=== PATIENT | male | born 1965 | race Two or more races ===

== ENCOUNTER 2017-05-31 12:26 | Emergency (ER) | payer SELFPAY ==
[2017-05-31 12:48] LABS: BILIRUBIN,URINE NEGATIVE (NEGATIVE)
[2017-05-31 12:53] LABS: UA w/ MICROSCOPIC CHARGE YES
[2017-05-31 13:08] LABS: UR CULTURE IF IND NOT INDICATED; WBC,URINE 0-3 /HPF (0-3)
[2017-05-31] MEDS ORDERED: SODIUM CHLORIDE 0.9% 1,000 ML IV ONE (13:16)
[2017-05-31] MEDS ORDERED: HYDROmorphone 1 MG/ML SYRINGE IVP STA (13:16)
[2017-05-31] MEDS ORDERED: ONDANSETRON 4 MG/2 ML VIAL IVP STA ×2 (13:16→14:16)
--- NOTE | 2017-05-31 13:20 | ED Physician Documentation ---
PD HPI ABD PAIN - Stated complaint Stated Complaint: VOMITING/BACK PX - Chief complaint Chief Complaint: Abd Pain - History obtained from History obtained from: Patient, Friend (Flavio) - History of Present Illness Timing - onset: Other (Developed low back pain radiating like a band to both lower quadrants in the groin about 4 days ago, and the next day he developed nausea and diarrhea, both of which got worse. He has had a subjective fever without measuring it. Pain is quite severe, he has never had anything like this. No sick contacts or recent travel.) Review of Systems Ten Systems: 10 systems reviewed and negative Constitutional: reports: Fever (Subjective) Cardiac: denies: Chest pain / pressure, Palpitations Respiratory: denies: Dyspnea, Cough GI: reports: Abdominal Pain, Nausea, Vomiting, Diarrhea. denies: Bloody / black stool : denies: Dysuria, Frequency PD PAST MEDICAL HISTORY - Past Medical History Cardiovascular: None Respiratory: None Neuro: Headache/migraine Endocrine/Autoimmune: Type 2 diabetes GI: Pancreatitis : None HEENT: None Psych: Depression, Claustrophobia Musculoskeletal: Osteoarthritis, Chronic back pain Derm: None - Past Surgical History Past Surgical History: No HEENT: Tonsil/Adenoidectomy - Present Medications Home Medications: Ambulatory Orders Medication Instructions Recorded Confirmed Insulin Glargine,Hum.rec.anlog 25 units SQ ONCE 09/17/15 09/17/15 [Lantus] HYDROcod/ACETAM 5/325 [[place] 5/325] 1 - 2 ea PO Q6H PRN #10 tablet 05/31/17 Ondansetron HCl [Zofran] 4 mg PO Q6H PRN #10 tablet 05/31/17 - Allergies Allergies/Adverse Reactions: Allergies Allergy/AdvReac Type Severity Reaction Status Date / Time meperidine HCl * Allergy Itching Verified 05/31/17 12:32 [From Demerol] peanuts Allergy Anaphylaxis Uncoded 05/31/17 12:32 - Social History Does the pt smoke?: No Smoking Status: Former smoker - Family History Family history: reports: Non contributory - Immunizations Immunizations are current?: Yes PD ED PE NORMAL - Vitals Vital signs reviewed: Yes - General General: Alert and oriented X 3, Other (Pale, uncomfortable, but not in overt distress) - HEENT HEENT: PERRL, EOMI - Neck Neck: Supple, no meningeal sign, No bony TTP - Cardiac Cardiac: RRR, No murmur - Respiratory Respiratory: No respiratory distress, Clear bilaterally - Abdomen Abdomen: Normal bowel sounds, Soft, Other (Tender to both lower quadrants, no surgical signs) - Male Male : Other (NL CIRC GENITALIA, TESTES NTTP, NO HERNIA) - Back Back: No CVA TTP, No spinal TTP - Derm Derm: Normal color, Warm and dry - Extremities Extremities: No edema, No calf tenderness / cord - Neuro Neuro: Alert and oriented X 3, Normal speech - Psych Psych: Normal mood, Normal affect Results - Vitals Vitals: Vital Signs - 24 hr 05/31/17 05/31/17 12:29 14:25 Temperature 36.3 C L Heart Rate 82 84 Respiratory 17 16 Rate Blood Pressure 142/83 H 156/77 H O2 Saturation 99 98 Oxygen O2 Source Room air - Labs Labs: Laboratory Tests 05/31/17 05/31/17 05/31/17 12:34 13:30 13:30 WBC 11.4 H RBC 5.23 Hgb 15.3 Hct 45.1 MCV 86.3 MCH 29.2 MCHC 33.8 RDW 13.7 Plt Count 191 MPV 8.5 Neut # 9.7 H Lymph # 0.9 L Kerr # 0.7 Eos # 0.0 Baso # 0.0 Absolute Nucleated RBC 0.00 Nucleated RBCs 0.0 Sodium 137 Potassium 3.8 Chloride 97 L Carbon Dioxide 30 Anion Gap 10.0 BUN 11 Creatinine 0.7 Estimated GFR (MDRD) 118 Glucose 273 H Lactic Acid Calcium 9.7 Total Bilirubin 0.6 AST 21 ALT 29 Alkaline Phosphatase 45 Total Protein 7.6 Albumin 4.2 Globulin 3.4 Albumin/Globulin Ratio 1.2 Lipase 18 L Urine Color YELLOW Urine Clarity CLEAR Urine pH 7.0 Ur Specific [place] 1.020 Urine Protein >=300 Urine Glucose (UA) >=1000 H Urine Ketones TRACE Urine Occult Blood TRACE-LYSE Urine Nitrite NEGATIVE Urine Bilirubin NEGATIVE Urine Urobilinogen 0.2 (NORMAL) Ur Leukocyte Esterase NEGATIVE Urine RBC 0-5 Urine WBC 0-3 Ur Squamous Epith Cells RARE Squamous Urine Bacteria None Seen Urine Mucus Marked Strands Ur Microscopic Review INDICATED Urine Culture Comments NOT INDICATED 05/31/17 13:50 WBC RBC Hgb Hct MCV MCH MCHC RDW Plt Count MPV Neut # Lymph # Kerr # Eos # Baso # Absolute Nucleated RBC Nucleated RBCs Sodium Potassium Chloride Carbon Dioxide Anion Gap BUN Creatinine Estimated GFR (MDRD) Glucose Lactic Acid 1.5 Calcium Total Bilirubin AST ALT Alkaline Phosphatase Total Protein Albumin Globulin Albumin/Globulin Ratio Lipase Urine Color Urine Clarity Urine pH Ur Specific [place] Urine Protein Urine Glucose (UA) Urine Ketones Urine Occult Blood Urine Nitrite Urine Bilirubin Urine Urobilinogen Ur Leukocyte Esterase Urine RBC Urine WBC Ur Squamous Epith Cells Urine Bacteria Urine Mucus Ur Microscopic Review Urine Culture Comments - Rads (name of study) CT A/P Radiology: EMP read contemporaneously (Mild diverticulosis, advanced DDD at L5/ s1) PD MEDICAL DECISION MAKING - ED course ED course: 52-year-old gentleman presents with undifferentiated lower abdominal pain and back pain associated with vomiting and diarrhea. Pretty benign examination with some mild lower abdominal tenderness. After pain medication the pain was mostly in the back. Workup here mostly negative with the exception of very mild leukocytosis and hyperglycemia which she said was good for him. Abdominal CT without acute findings. Offered surgical consultation and/or observation stay, he would like to observe his symptoms at home and returns in 12 hours if not better. Departure - Departure Disposition: Home, Self Care Clinical Impression: Abdominal pain Qualifiers: Abdominal location: lower abdomen, unspecified Qualified Code(s): R10.30 - Lower abdominal pain, unspecified Condition: Good Record reviewed to determine appropriate education?: Yes Instructions: Abdominal Pain Prescriptions: HYDROcod/ACETAM 5/325 [[place] 5/325] 1 - 2 ea PO Q6H PRN #10 tablet PRN Reason: Pain Ondansetron HCl [Zofran] 4 mg PO Q6H PRN #10 tablet PRN Reason: Nausea / Vomiting Comments: Do not take your metformin for the next 48 hours as discussed. Return if worse in anyway or if not improving within the next 12 hours or so. Your blood pressure was elevated today on check into the emergency department. This does not mean that you have hypertension, it is a common phenomenon to come to the emergency department and have elevated blood pressure. I recommend that she see her primary care physician within the week to have it rechecked when you are feeling better.
[2017-05-31] MEDS ORDERED: HYDROmorphone 1 MG/ML SYRINGE ONE (13:23)
[2017-05-31] MEDS ORDERED: ONDANSETRON 4 MG/2 ML VIAL ONE ×2 (13:23→14:24)
[2017-05-31 13:45] LABS: BASOPHILS % (AUTO) 0.3 %; EOSINOPHILS % (AUTO) 0.1 %; HCT - HEMATOCRIT 45.1 % (42.0-52.0); HGB - HEMOGLOBIN 15.3 g/dL (14.0-18.0); LYMPHOCYTES # (AUTO) 0.9 10^3/uL (1.5-3.5); LYMPHOCYTES % (AUTO) 8.1 %; MEAN CORPUSCULAR HEMOGLOBIN 29.2 pg (27.0-31.0); MEAN CORPUSCULAR HGB CONC 33.8 g/dL (32.0-36.0); MEAN CORPUSCULAR VOLUME 86.3 fL (80.0-94.0); MEAN PLATELET VOLUME 8.5 fL (7.4-11.4); MONOCYTES # (AUTO) 0.7 10^3/uL (0.0-1.0); MONOCYTES % (AUTO) 5.8 %; NEUTROPHILS # (AUTO) 9.7 10^3/uL (1.5-6.6); NEUTROPHILS % (AUTO) 85.7 %; RED BLOOD COUNT 5.23 10^6/uL (4.70-6.10); RED CELL DISTRIBUTION WIDTH 13.7 % (12.0-15.0); UNCORRECTED WHITE BLOOD COUNT 11.4 x10^3/uL; WHITE BLOOD COUNT 11.4 x10^3/uL (4.8-10.8)
[2017-05-31 13:58] LABS: ALBUMIN/GLOBULIN RATIO 1.2 (1.0-2.2); BILIRUBIN,TOTAL 0.6 mg/dL (0.2-1.0); CALCIUM 9.7 mg/dL (8.5-10.3); CREATININE 0.7 mg/dL (0.6-1.2); POTASSIUM 3.8 mmol/L (3.5-5.0); TOTAL PROTEIN 7.6 g/dL (6.7-8.2)
[2017-05-31] MEDS ORDERED: IOPAMIDOL-300 100 ML VIAL IVP ONE (14:17)
--- NOTE | 2017-05-31 15:09 | CT Preliminary Report ---
Exam: CT Abdomen/Pelvis W/ IMPRESSION: 1. No definite acute abnormality explain lower abdominal pain. 2. Mild diverticulosis in the ascending colon without evidence of diverticulitis. 3. Advanced disk degeneration at L5/S1. 4. Additional findings as above. [facility] SITE ID: [id number]
--- NOTE | 2017-05-31 15:11 | CT Report ---
EXAM: CT ABDOMEN AND PELVIS EXAM DATE: 05/31/2017 02:22 PM. CLINICAL HISTORY: IV only, low abd pain. COMPARISONS: None. TECHNIQUE: Routine helical CT imaging was performed through the abdomen and pelvis. IV contrast: 100 cc Isovue-300. Enteric contrast: No. Reconstructions: Coronal and sagittal. In accordance with CT protocol optimization, one or more of the following dose reduction techniques w ere utilized for this exam: automated exposure control, adjustment of mA and/or KV based on patient s ize, or use of iterative reconstructive technique. FINDINGS: Lung Bases: Unremarkable. Liver: Normal. No masses. Gallbladder/Bile Ducts: Unremarkable. Spleen: Normal. Pancreas: Normal. Adrenal Glands: Normal. Kidneys: 1 cm hypodense lesion in the lower pole the right kidney and subcentimeter hypodense lesion in the midpole of the left kidney, cysts. Otherwise, no masses or hydronephrosis. Peritoneal Cavity/Bowel: No free fluid, free air or adenopathy. No masses or acute inflammatory proc ess. A few diverticula are noted in the ascending colon. The appendix is well visualized and normal. Pelvic Organs: The prostate appears mildly heterogeneous and prominent. There is dense calcification of the vas deferens bilaterally. The bladder and visualized pelvic organs are otherwise within normal limits. Vasculature: No aneurysms or other significant abnormality. Atherosclerotic calcifications are Bones: Advanced disk degeneration with endplate sclerosis is seen at L5/S1. Other: None. IMPRESSION: 1. No definite acute abnormality explain lower abdominal pain. 2. Mild diverticulosis in the ascending colon without evidence of diverticulitis. 3. Advanced disk degeneration at L5/S1. 4. Additional findings as above. [facility] Referring Provider Line: [phone] SITE ID: [id number]
[2017-05-31] MEDS ORDERED: diazePAM INJ 5 MG/ML SYRINGE IVP STA (15:24)
[2017-05-31] MEDS ORDERED: diazePAM INJ 5 MG/ML SYRINGE ONE (15:33)
[2017-05-31] MEDS ORDERED: METOCLOPRAMIDE 10 MG/2 ML VIAL IVP STA (15:38)
[2017-05-31] MEDS ORDERED: METOCLOPRAMIDE 10 MG/2 ML VIAL ONE (15:43)
[2017-05-31 16:13] VITALS: BP 151/80
== END 2017-05-31 16:45 | disposition home or self-care (01) ==
LOC: ED 12:26
DX: R10.30 Lower abdominal pain, unspecified (principal); R11.2 Nausea with vomiting, unspecified; R03.0 Elevated blood-pressure reading, without diagnosis of hypertension; E11.9 Type 2 diabetes mellitus without complications; Z79.4 Long term (current) use of insulin; M19.90 Unspecified osteoarthritis, unspecified site; Z87.891 Personal history of nicotine dependence
CPT/HCPCS: 36415; 74177; 80053; 81001; 83605; 83690; 85025; 96361; 96374; 96375; 96376; 99284; J1170; Q9967; 81003; 87086

== ENCOUNTER 2022-12-26 09:42 | Emergency (ER) | payer SELFPAY ==
--- NOTE | 2022-12-26 09:59 | ED Physician Documentation ---
PD HPI ABD PAIN - Stated complaint Stated Complaint: VOMITING - Chief complaint Chief Complaint: Abd Pain - History obtained from History obtained from: Patient - History of Present Illness Timing - onset: How many days ago (4) Timing - duration: Days (4) Timing - details: Gradual onset, Still present Quality: Cramping, Aching, Pain Location: Epigastric Radiation: Upper back. No: Chest, Lower back Improved by: No: Vomiting Worsened by: Eating Associated symptoms: Nausea, Vomiting (any attempt at po intake leads to vomiting.). No: Fever, Constipation, Melena Similar symptoms before: No diagnosis (he states he has had similar symptoms lasting 1-2 days at a time in the past, without dx. usually improves.) Review of Systems Constitutional: reports: Myalgias. denies: Fever, Chills Nose: denies: Rhinorrhea / runny nose, Congestion Throat: denies: Sore throat Cardiac: denies: Chest pain / pressure Respiratory: denies: Dyspnea, Cough GI: reports: Abdominal Pain, Nausea, Vomiting. denies: Abdominal Swelling, Hematemesis : denies: Dysuria, Frequency Neurologic: reports: Generalized weakness. denies: Focal weakness, Numbness PD PAST MEDICAL HISTORY - Past Medical History Cardiovascular: None Respiratory: None Endocrine/Autoimmune: Type 2 diabetes (on insulin with regular doses during the illness. ) GI: Pancreatitis : Renal insuffiency (in getting ready to start dialysis in the next couple of weeks, per patient. ) HEENT: None Psych: Depression, Claustrophobia Musculoskeletal: Osteoarthritis, Chronic back pain Derm: None - Past Surgical History Past Surgical History: No HEENT: Tonsil/Adenoidectomy - Present Medications Home Medications: Ambulatory Orders Medication Instructions Recorded Confirmed ondansetron HCL [Zofran] 4 mg PO Q6H PRN #10 tablet 05/31/17 12/26/22 Albuterol Sulfate [Proair 1 - 2 puffs IH Q6HR PRN 12/26/22 12/26/22 Digihaler] Atorvastatin [Lipitor] 10 mg PO HS 12/26/22 12/26/22 Ferrous Sulfate [Feosol] 325 mg PO DAILY 12/26/22 12/26/22 Fluticasone Propion/Salmeterol 1 each IH DAILY 12/26/22 12/26/22 [Airduo Respiclick 113-14 Mcg] Fluticasone [Flonase] 1 sprays GREGORIO DAILY 12/26/22 12/26/22 Insulin Detemir [Levemir] 10 unit SUBQ DAILY 12/26/22 12/26/22 Insulin Detemir [Levemir] 20 unit SUBQ QPM 12/26/22 12/26/22 Insulin Lispro [Humalog] 10 unit SUBQ BID 12/26/22 12/26/22 Loratadine [Claritin] 10 mg PO DAILY 12/26/22 12/26/22 Losartan [Cozaar] 100 mg PO DAILY 12/26/22 12/26/22 Omeprazole Magnesium 20 mg PO DAILY 12/26/22 12/26/22 Promethazine [Phenergan] 25 mg PO Q6H PRN #15 tab 12/26/22 Sucralfate [Carafate] 1 gm PO BID #20 tablet 12/26/22 Torsemide 20 mg PO DAILY 12/26/22 12/26/22 - Allergies Allergies/Adverse Reactions: Allergies Allergy/AdvReac Type Severity Reaction Status Date / Time meperidine HCl * Allergy Itching Verified 12/26/22 09:50 [From Demerol] peanuts Allergy Anaphylaxis Uncoded 12/26/22 09:50 - Social History Does the pt smoke?: No Smoking Status: Former smoker - Immunizations Immunizations are current?: Yes PD ED PE NORMAL - Vitals Vital signs reviewed: Yes - General General: Alert and oriented X 3, Well developed/nourished, Other (appears uncomfortable and is holding emesis bag. ) - HEENT HEENT: Pharynx benign - Neck Neck: Supple, no meningeal sign, No adenopathy - Cardiac Cardiac: RRR, No murmur - Respiratory Respiratory: Clear bilaterally - Abdomen Abdomen: Normal bowel sounds, Soft, Non distended, No organomegaly, Other (tender without guarding epigastric to ruQ area. No percussion nor rebound. ) - Back Back: No CVA TTP - Derm Derm: Warm and dry. No: Normal color (pale) - Extremities Extremities: Normal ROM s pain, No edema, No calf tenderness / cord Results - Vitals Vitals: Vital Signs - 24 hr 12/26/22 12/26/22 12/26/22 09:46 11:50 13:00 Temperature 36.7 C 36.2 C L Heart Rate 81 78 76 Respiratory 18 18 18 Rate Blood Pressure 201/107 H 190/106 H 196/107 H O2 Saturation 100 100 100 12/26/22 14:46 Temperature Heart Rate 77 Respiratory 18 Rate Blood Pressure 186/100 H O2 Saturation 96 Oxygen O2 Source Room air - Labs Labs: Laboratory Tests 12/26/22 12/26/22 10:23 10:23 WBC 12.3 H RBC 3.74 L Hgb 10.5 L Hct 33.7 L MCV 90.1 MCH 28.1 MCHC 31.2 L RDW 15.1 H Plt Count 276 MPV 9.6 Neut # (Auto) 11.0 H Lymph # (Auto) 0.8 L [place] # (Auto) 0.5 Eos # (Auto) 0.0 Baso # (Auto) 0.0 Absolute Nucleated RBC 0.00 Nucleated RBC % 0.0 Sodium 136 Potassium 4.2 Chloride 97 L Carbon Dioxide 24 Anion Gap 15.0 H BUN 76 H Creatinine 5.6 H Estimated GFR (MDRD) 11 L Glucose 262 H Calcium 8.7 Magnesium 2.8 Total Bilirubin 1.1 H AST 23 ALT 24 Alkaline Phosphatase 71 Total Protein 6.5 L Albumin 3.2 Globulin 3.3 Albumin/Globulin Ratio 1.0 Lipase 28 Ethyl Alcohol < 5.0 - Rads (name of study) RUQ abd U/S Radiology: Prelim report reviewed (GB sludge, no stones. Wall normal. cbd 6 mm. right pleural effusion. ), EMP read indepedently, See rad report chest xray Radiology: Prelim report reviewed (minimal effusion noted. no infiltrates.), EMP read indepedently (done to better eval the pleural effusion noted on U/S.), See rad report PD Medical Decision Making - ED course Complexity details: reviewed results, re-evaluated patient, considered differential, d/w patient ED course: 4 days of nausea and vomiting, stomach cramps. has had simlar in past without dx. possible viral illness versus diabetic gastroparesis. could have gastritis/ulcer. Can eval for pancreatatis and lfts. can get u/S to eval gallbnladder. These tests were normal. he was given iv fluids, antiemetic and pain meds. Improved sympotms with just mild epigastric pains. able to take glass of water and ice slowly. some crackers. He appears to be able to expect home therapy to work. Departure - Departure Disposition: 01 Home, Self Care Clinical Impression: Diabetes Nausea and vomiting Qualifiers: Vomiting type: unspecified Qualified Code(s): R11.2 - Nausea with vomiting, unspecified Chronic renal failure Qualifiers: Chronic kidney disease stage: stage 4 (severe) Qualified Code(s): N18.4 - Chronic kidney disease, stage 4 (severe) Condition: Stable Record reviewed to determine appropriate education?: Yes Instructions: ED Nausea Vomiting Follow-Up: Brannon Tillman MD [Primary Care Provider] - Prescriptions: Sucralfate [Carafate] 1 gm PO BID #20 tablet Promethazine [Phenergan] 25 mg PO Q6H PRN #15 tab PRN Reason: Nausea / Vomiting Comments: Your nausea and vomiting seem to be improved now with medications. This may be related to irritation of the stomach. I would have you continue with your omeprazole daily. To that add sacral fate 2-3 times daily to help coat the stomach. As you are not having good improvement with the Zofran/ondansetron, you could try promethazine instead to help with nausea. Continue your other medications. Small frequent fluids and bland food initially. If you are having less oral intake, until your calorie intake improves, you should cut back your insulin dosing by 10 or 20%. Your blood sugar here was if anything slightly high at 250s. So I would not hold back on your insulin too much. Follow-up with your primary care in the next couple of days, call for an appointment. Return if worsening symptoms again. I sent prescription to your preferred [facility] pharmacy. Discharge Date/Time: 12/26/22 15:22
[2022-12-26] MEDS ORDERED: SODIUM CHLORIDE 0.9% 1,000 ML IV STA ×2 (10:13→13:08)
[2022-12-26] MEDS ORDERED: ONDANSETRON 4 MG/2 ML VIAL IVP STA (10:13)
[2022-12-26] MEDS ORDERED: HYDROmorphone 1 MG/ML CARPUJECT IVP STA (10:14)
[2022-12-26] MEDS ORDERED: PANTOPRAZOLE 40 MG VIAL IVP STA (10:14)
[2022-12-26 10:33] LABS: BASOPHILS % (AUTO) 0.2 %; HCT - HEMATOCRIT 33.7 % (42.0-52.0); HGB - HEMOGLOBIN 10.5 g/dL (14.0-18.0); LYMPHOCYTES # (AUTO) 0.8 10^3/uL (1.5-3.5); LYMPHOCYTES % (AUTO) 6.5 %; MEAN CORPUSCULAR HEMOGLOBIN 28.1 pg (27.0-31.0); MEAN CORPUSCULAR HGB CONC 31.2 g/dL (32.0-36.0); MEAN CORPUSCULAR VOLUME 90.1 fL (80.0-94.0); MEAN PLATELET VOLUME 9.6 fL (7.4-11.4); MONOCYTES # (AUTO) 0.5 10^3/uL (0.0-1.0); MONOCYTES % (AUTO) 3.7 %; NEUTROPHILS % (AUTO) 89.3 %; PLT - PLATELET COUNT 276 10^3/uL (130-450); RED BLOOD COUNT 3.74 10^6/uL (4.70-6.10); RED CELL DISTRIBUTION WIDTH 15.1 % (12.0-15.0); WHITE BLOOD COUNT 12.3 x10^3/uL (4.8-10.8)
[2022-12-26 10:47] LABS: ALBUMIN 3.2 g/dL (3.2-5.5); ALKALINE PHOSPHATASE 71 IU/L (42-121); ALT ALANINE AMINOTRANSFERASE 24 IU/L (10-60); AST ASPARTATE AMINOTRANSFERASE 23 IU/L (10-42); BILIRUBIN,TOTAL 1.1 mg/dL (0.2-1.0); BUN - BLOOD UREA NITROGEN 76 mg/dL (6-20); CALCIUM 8.7 mg/dL (8.5-10.3); CARBON DIOXIDE - CO2 24 mmol/L (21-32); CHLORIDE 97 mmol/L (101-111); CREATININE 5.6 mg/dL (0.6-1.2); ETOH - ETHANOL < 5.0 mg/dL; GFR - MDRD 11 (>89); GLUCOSE 262 mg/dL (70-100); LIPASE 28 U/L (22-51); MAGNESIUM 2.8 mg/dL (1.7-2.8); POTASSIUM 4.2 mmol/L (3.5-5.0); SODIUM 136 mmol/L (135-145); TOTAL PROTEIN 6.5 g/dL (6.7-8.2)
--- NOTE | 2022-12-26 12:09 | XRAY Report ---
PROCEDURE: Chest 1 View X-Ray INDICATIONS: right effusion TECHNIQUE: One view of the chest was acquired. COMPARISON: Limited abdominal ultrasound from the same date. FINDINGS: Surgical changes and devices: None. Lungs and pleura: The right pleural effusion seen on the ultrasound is not well seen on chest x-ray. It may be subpulmonic in location or may be small. Minimal bibasilar atelectasis. Mediastinum: Mediastinal contours appear normal. Mild cardiomegaly. Bones and chest wall: No suspicious bony lesions. Overlying soft tissues appear unremarkable. IMPRESSION: 1. The right pleural effusion seen on ultrasound is not identified on portable chest film. It may be subpulmonic or may be small. 2. Minimal bibasilar atelectasis. Reviewed by: Gian Lamb MD on 12/26/2022 12:08 PM PST Approved by: Gian Lamb MD on 12/26/2022 12:08 PM PST Station ID: [id number]
--- NOTE | 2022-12-26 12:48 | Ultrasound Report ---
PROCEDURE: Abdomen Limited INDICATIONS: upper abd pain and vomiting TECHNIQUE: Real-time focused scanning was performed of the abdomen, with image documentation. COMPARISON: None FINDINGS: A right pleural effusion is noted. The liver is unremarkable in appearance. Normal echo pa ttern. No focal masses. There is gallbladder sludge. No shadowing gallstones. No gallbladder wall thickening or fluid around the gallbladder obtained on examination. Pancreas not visualized secondary to overlying bowel gas. No dilated ducts. Common bile duct measures 4.1 mm. Normal-sized right kidney measuring 10.9 cm without hydronephrosis. IMPRESSION: 1. Right pleural effusion. 2. Gallbladder sludge. No shadowing gallstones. Reviewed by: Gian Lamb MD on 12/26/2022 12:46 PM PST Approved by: Gian Lamb MD on 12/26/2022 12:46 PM PST Station ID: [id number]
[2022-12-26] MEDS ORDERED: HYDROmorphone 0.5 MG/0.5 ML SYRINGE IVP STA (13:08)
[2022-12-26] MEDS ORDERED: MAG HYDROX/AL HYDROX/SIMETH 30 ML UDC PO STA (13:08)
[2022-12-26 14:47] VITALS: BP 186/100
== END 2022-12-26 15:22 | disposition home or self-care (01) ==
LOC: ED 09:42
DX: R11.2 Nausea with vomiting, unspecified (principal); E11.22 Type 2 diabetes mellitus with diabetic chronic kidney disease; N18.4 Chronic kidney disease, stage 4 (severe); Z79.4 Long term (current) use of insulin; Z87.891 Personal history of nicotine dependence
CPT/HCPCS: 36415; 71045; 76705; 80053; 80320; 83690; 83735; 85025; 96361; 96374; 96376; 99284; A9270; J1170

== ENCOUNTER 2023-06-06 19:14 | Emergency (ER) | payer MEDICAID ==
[2023-06-06] MEDS ORDERED: ONDANSETRON 4 MG/2 ML VIAL IVP STA (19:37)
[2023-06-06] MEDS ORDERED: MORPHINE 2 MG/ML CARPUJECT IVP STA (19:37)
[2023-06-06 19:45] LABS: BASOPHILS # (AUTO) 0.1 10^3/uL (0.0-0.1); BASOPHILS % (AUTO) 0.4 %; EOSINOPHILS % (AUTO) 0.1 %; HCT - HEMATOCRIT 37.9 % (42.0-52.0); HGB - HEMOGLOBIN 12.2 g/dL (14.0-18.0); LYMPHOCYTES # (AUTO) 1.1 10^3/uL (1.5-3.5); LYMPHOCYTES % (AUTO) 8.1 %; MEAN CORPUSCULAR HEMOGLOBIN 29.5 pg (27.0-31.0); MEAN CORPUSCULAR HGB CONC 32.2 g/dL (32.0-36.0); MEAN CORPUSCULAR VOLUME 91.8 fL (80.0-94.0); MEAN PLATELET VOLUME 9.7 fL (7.4-11.4); MONOCYTES # (AUTO) 0.9 10^3/uL (0.0-1.0); MONOCYTES % (AUTO) 6.5 %; NEUTROPHILS # (AUTO) 11.1 10^3/uL (1.5-6.6); NEUTROPHILS % (AUTO) 84.4 %; PLT - PLATELET COUNT 133 10^3/uL (130-450); RED BLOOD COUNT 4.13 10^6/uL (4.70-6.10); RED CELL DISTRIBUTION WIDTH 17.8 % (12.0-15.0); WHITE BLOOD COUNT 13.2 x10^3/uL (4.8-10.8)
[2023-06-06 19:57] LABS: INR 1.2 (0.8-1.2); PT - PROTHROMBIN TIME 12.8 secs (9.9-12.6)
[2023-06-06 20:03] LABS: ALBUMIN 4.1 g/dL (3.2-5.5); ALBUMIN/GLOBULIN RATIO 1.2 (1.0-2.2); BILIRUBIN,TOTAL 0.8 mg/dL (0.2-1.0); CALCIUM 9.8 mg/dL (8.5-10.3); CREATININE 6.3 mg/dL (0.6-1.3); POTASSIUM 4.7 mmol/L (3.5-4.5); TOTAL PROTEIN 7.6 g/dL (6.4-8.9)
--- NOTE | 2023-06-06 20:46 | XRAY Report ---
PROCEDURE: Chest 1 View X-Ray INDICATIONS: DYSPNEA/ESRD TECHNIQUE: One view of the chest was acquired. COMPARISON: Chest x-ray 12/26/2022 FINDINGS: Surgical changes and devices: Tunneled central venous catheter with tip terminating in the right atr ium. Lungs and pleura: Prominent pulmonary vascularity. Small right pleural effusion. Mediastinum: Mediastinal contours appear normal. Heart size is mildly enlarged. Bones and chest wall: No suspicious bony lesions. Overlying soft tissues appear unremarkable. IMPRESSION: Mild cardiomegaly. Prominent pulmonary vascularity consistent with pulmonary edema and small right pl eural effusion. Reviewed by: Omega Cuellar MD on 06/06/2023 8:44 PM PDT Approved by: Omega Cuellar MD on 06/06/2023 8:44 PM PDT Station ID: [id number]
--- NOTE | 2023-06-06 21:20 | ED Physician Documentation ---
PD HPI ABD PAIN - Stated complaint Stated Complaint: SOA,VOMITING, TIRED - Chief complaint Chief Complaint: Abd Pain - History obtained from History obtained from: Patient - Additional information Additional information: 58-year-old male with history of ESRD on Friday dialysis, diabetes, gastroparesis presents by private vehicle for 1 day of nausea and vomiting with abdominal pain similar to previous gastroparesis flares. Patient was supposed to go to dialysis today, but missed due to his nausea and vomiting. Last dialyzed 2 days ago on Friday. Patient's home antinausea medications are not working. Pain is generalized, worse in the lower quadrants. Review of Systems Constitutional: denies: Fever, Chills GI: reports: Abdominal Pain, Nausea, Vomiting. denies: Constipation, Diarrhea : denies: Dysuria, Frequency, Hesitancy PD PAST MEDICAL HISTORY - Past Medical History Cardiovascular: None Respiratory: None Endocrine/Autoimmune: Type 2 diabetes (on insulin with regular doses during the illness. ) GI: Pancreatitis : Renal insuffiency (in getting ready to start dialysis in the next couple of weeks, per patient. ) HEENT: None Psych: Depression, Claustrophobia Musculoskeletal: Osteoarthritis, Chronic back pain Derm: None - Past Surgical History Past Surgical History: No HEENT: Tonsil/Adenoidectomy - Present Medications Home Medications: Ambulatory Orders Medication Instructions Recorded Confirmed ondansetron HCL [Zofran] 4 mg PO Q6H PRN #10 tablet 05/31/17 06/06/23 Albuterol Sulfate [Proair 1 - 2 puffs IH Q6HR PRN 12/26/22 12/26/22 Digihaler] Atorvastatin [Lipitor] 10 mg PO HS 12/26/22 12/26/22 Ferrous Sulfate [Feosol] 325 mg PO DAILY 12/26/22 06/06/23 Fluticasone Propion/Salmeterol 1 each IH DAILY 12/26/22 06/06/23 [Airduo Respiclick 113-14 Mcg] Fluticasone [Flonase] 1 sprays GREGORIO DAILY 12/26/22 12/26/22 Insulin Detemir [Levemir] 10 unit SUBQ DAILY 12/26/22 12/26/22 Insulin Detemir [Levemir] 20 unit SUBQ QPM 12/26/22 12/26/22 Insulin Lispro [Humalog] 10 unit SUBQ BID 12/26/22 12/26/22 Loratadine [Claritin] 5 mg PO DAILY 12/26/22 12/26/22 Losartan [Cozaar] 100 mg PO DAILY 12/26/22 12/26/22 Omeprazole Magnesium 20 mg PO DAILY 12/26/22 06/06/23 Promethazine [Phenergan] 25 mg PO Q6H PRN #15 tab 12/26/22 Sucralfate [Carafate] 1 gm PO BID #20 tablet 12/26/22 Torsemide 100 mg PO DAILY 12/26/22 06/06/23 Atorvastatin [Lipitor] 10 mg PO DAILY PM 06/06/23 06/06/23 Carvedilol [Coreg] 6.25 mg PO BID 06/06/23 06/06/23 Metoclopramide [Reglan] 10 mg PO Q6HR 06/06/23 06/06/23 NIFEdipine [Nifedipine ER] 60 mg PO DAILY 06/06/23 06/06/23 calcitrioL [Rocaltrol] 0.25 mcg PO DAILY 06/06/23 06/06/23 cloNIDine [Catapres] 0.1 mg PO BID 06/06/23 06/06/23 hydrOXYzine HCL [Hydroxyzine HCl] 50 mg PO Q6HR PRN 06/06/23 06/06/23 methocarbamoL [Methocarbamol] 500 mg PO TID 06/06/23 06/06/23 prednisoLONE [Prednisolone] 10 mg PO DAILY 06/06/23 06/06/23 rOPINIRole [Requip] 1 mg PO TID 06/06/23 06/06/23 Promethazine [Phenergan] 25 mg PO Q6H PRN #10 tab 06/07/23 - Allergies Allergies/Adverse Reactions: Allergies Allergy/AdvReac Type Severity Reaction Status Date / Time meperidine HCl * Allergy Itching Verified 06/06/23 19:19 [From Demerol] peanuts Allergy Anaphylaxis Uncoded 06/06/23 19:19 - Social History Does the pt smoke?: No Smoking Status: Former smoker - Immunizations Immunizations are current?: Yes PD ED PE NORMAL - Vitals Vital signs reviewed: Yes - General General: Alert and oriented X 3, No acute distress, Well developed/nourished - HEENT HEENT: Atraumatic - Cardiac Cardiac: RRR, Strong equal pulses - Respiratory Respiratory: No respiratory distress, Other (Decreased R sided breath sounds) - Abdomen Abdomen: Soft, Non distended, Other (generalized tenderness to deep palpation without rebound or guarding) - Derm Derm: Normal color, Warm and dry, No rash - Extremities Extremities: No deformity, No tenderness to palpate, Normal ROM s pain, No edema - Neuro Neuro: Alert and oriented X 3, master control supervisor 2-12 intact, No motor deficit, Normal speech - Psych Psych: Normal mood, Normal affect Results - Vitals Vitals: Vital Signs - 24 hr 06/06/23 06/07/23 06/07/23 23:00 00:00 01:51 Heart Rate 83 85 85 Respiratory 20 20 16 Rate Blood Pressure 154/72 H 161/84 H 166/85 H O2 Saturation 93 93 95 Oxygen O2 Source Room air - Labs Labs: Laboratory Tests 06/06/23 06/06/23 06/06/23 19:34 19:34 19:47 WBC 13.2 H RBC 4.13 L Hgb 12.2 L Hct 37.9 L MCV 91.8 MCH 29.5 MCHC 32.2 RDW 17.8 H Plt Count 133 MPV 9.7 Neut # (Auto) 11.1 H Lymph # (Auto) 1.1 L [place] # (Auto) 0.9 Eos # (Auto) 0.0 Baso # (Auto) 0.1 Absolute Nucleated RBC 0.00 Nucleated RBC % 0.0 PT 12.8 H INR 1.2 Sodium 131 L Potassium 4.7 H Chloride 94 L Carbon Dioxide 24 Anion Gap 13.0 BUN 54 H Creatinine 6.3 H Estimated GFR (MDRD) 9 L Glucose 230 H Calcium 9.8 Total Bilirubin 0.8 AST 19 ALT 31 Alkaline Phosphatase 206 H Total Protein 7.6 Albumin 4.1 Globulin 3.5 Albumin/Globulin Ratio 1.2 Lipase 38 PD Medical Decision Making - ED course Complexity details: reviewed results, re-evaluated patient, considered differential, d/w patient, d/w sr technical sales consultant ED course: Chronically unwell but not acutely toxic appearing patient presenting for nausea and vomiting with abdominal pain consistent to previous gastroparesis flares. Abdomen is soft but generally tender to palpation. Will obtain labs and noncontrast CT imaging since the patient does do dialysis. Will be important to assess patient's potassium and volume status since he did miss dialysis today. Patient is still nauseous with Zofran. Will give droperidol. Labs are reviewed, he does have ESRD which is known, however potassium is not a concerning level. EKG without hyperacute T waves. Chest x-ray shows some evidence of volume overload with pleural effusions, however patient is currently sleeping in the exam room and on room air his saturations are 95%. CT imaging is reviewed, there is moderate pleural effusion, diffuse anasarca. These are all chronic findings for patient's, again he is saturating well on room air and in no acute distress despite the pleural effusion. I discussed the patient's care with on-call nephrology at [facility], which is where patient receives dialysis. On-call nephrology believes that patient is stable for discharge home and can call the dialysis center tomorrow morning to arrange for a make-up dialysis session. Nausea has improved with droperidol, will give p.o. challenge and if successful will discharge home with instructions to call dialysis first thing tomorrow morning. Care of patient signed out to nighttime ER provider. Departure - Departure Disposition: Home, Self Care Clinical Impression: Gastroparesis Vomiting Qualifiers: Vomiting type: unspecified Nausea presence: with nausea Qualified Code(s): R11.2 - Nausea with vomiting, unspecified Condition: Stable Instructions: Gastroparesis Prescriptions: Promethazine [Phenergan] 25 mg PO Q6H PRN #10 tab PRN Reason: Nausea / Vomiting Comments: CALL DIALYSIS TOMORROW TO SET UP AN APPOINTMENT!!! A prescription for phenergan (anti-nausea medication) has been electronically submitted to the [facility] pharmacy in [place]. Forms: PCP List Discharge Date/Time: 06/07/23 01:51
[2023-06-06] MEDS ORDERED: DROPERIDOL 5 MG/2 ML VIAL IVP STA (21:30)
--- NOTE | 2023-06-06 22:22 | CT Report ---
PROCEDURE: ABDOMEN/PELVIS WO INDICATIONS: ABD PAIN, N/V TECHNIQUE: A CT scan of the abdomen and pelvis was performed without the use of intravenous contrast. Images we re recorded and evaluated at appropriate window settings. Reformats: coronal and sagittal. For radiat ion dose reduction, the following was used: automated exposure control, adjustment of mA and/or kV ac cording to patient size. COMPARISON: CT abdomen pelvis 05/31/2017. FINDINGS: Image quality: There is mild motion artifact. Lung bases:There are bilateral pleural effusions, moderate on the right and small on the left, with associated compressive atelectasis. Heart: Heart is normal in size. ABDOMEN: Liver:Noncontrast evaluation of liver demonstrates no discrete mass. Gallbladder:There are a few dependent densities within the gallbladder compatible with gallstones. N o definite gallbladder wall thickening or pericholecystic fluid. Biliary ducts: No biliary ductal dilatation. Pancreas: Unremarkable. Spleen: Normal in size. Adrenal Glands: No adrenal nodules. Kidneys and Ureters: No hydronephrosis. There are small vascular calcifications within the renal hil um bilaterally. Stomach and Bowel: Stomach, small bowel loops, and colon are normal in caliber and wall thickness. N o evidence of appendicitis. There is colonic diverticulosis without acute diverticulitis. Peritoneum:There is a small to moderate amount of intraperitoneal free fluid in the abdomen and pelv is. No free air. Ventral Wall: No hernia. Abdominal Nodes: No retroperitoneal or mesenteric adenopathy by size criteria. Vessels: Aorta and inferior vena cava are normal in size. PELVIS: Pelvic Organs: Unremarkable. Bladder: Unremarkable. Pelvic Nodes: No enlarged lymph nodes. Miscellaneous: No inguinal hernias. Bones: Visualized osseous structures demonstrate no suspicious lesions. IMPRESSION: 1. Small to moderate amount of ascites. 2. Bilateral pleural effusions, moderate on the right and small on the left, with associated compress андрей atelectasis. 3. Cholelithiasis without definite CT evidence of acute cholecystitis. 4. No evidence of bowel obstruction. Reviewed by: Ruben Zamora MD on 06/06/2023 10:20 PM PDT Approved by: Ruben Zamora MD on 06/06/2023 10:20 PM PDT Station ID: [id number]
[2023-06-07 01:52] VITALS: BP 166/85
--- NOTE | 2023-06-07 04:39 | ED Physician Documentation ---
ED Addendum - Addendum Addendum: 06/07/23 04:35 Patient was initially evaluated by my colleague Dr. Bain; please see her note for complete history and physical. At the time of signout, it was felt that testing was complete for the purposes of the presenting chief complaint on this visit, but prior to decision to dis charge, patient was needing to pass a p.o. challenge. He had failed this just prior to the end of Dr. Bain's shift, and thus he was given a dose of droperidol. After turnover of care to me, the patient was able to pass a p.o. fluid challenge. I discussed discharge with the patient. He is asleep, awakens easily to voice, and reports he feels well and is ready for discharge home. I asked if he has antinausea medications at home, and he indicates to me that he has Zofran but that it tends to be ineffective. He also says he takes Reglan on a daily basis. He tells me that Phenergan has been prescribed in the past for him and works quite well on his nausea/vomiting. I am providing him with a prescription for a short course of PRN Phenergan. Return precautions reviewed with patient.
== END 2023-06-07 01:51 | disposition home or self-care (01) ==
LOC: ED 19:14
DX: K31.84 Gastroparesis (principal); E11.22 Type 2 diabetes mellitus with diabetic chronic kidney disease; N18.6 End stage renal disease; Z99.2 Dependence on renal dialysis; J90 Pleural effusion, not elsewhere classified; Z79.4 Long term (current) use of insulin
CPT/HCPCS: 36415; 80053; 83690; 85025; 85610; 93005; 96374; 96375; 99284

== ENCOUNTER 2023-06-09 11:15 | Emergency (ER) | payer MEDICAID ==
[2023-06-09 11:57] LABS: BASOPHILS % (AUTO) 0.1 %; HCT - HEMATOCRIT 32.5 % (42.0-52.0); LYMPHOCYTES # (AUTO) 0.6 10^3/uL (1.5-3.5); LYMPHOCYTES % (AUTO) 6.6 %; MEAN CORPUSCULAR HEMOGLOBIN 29.3 pg (27.0-31.0); MEAN CORPUSCULAR HGB CONC 33.8 g/dL (32.0-36.0); MEAN CORPUSCULAR VOLUME 86.7 fL (80.0-94.0); MEAN PLATELET VOLUME 11.1 fL (7.4-11.4); MONOCYTES # (AUTO) 0.7 10^3/uL (0.0-1.0); MONOCYTES % (AUTO) 7.2 %; NEUTROPHILS # (AUTO) 7.8 10^3/uL (1.5-6.6); NEUTROPHILS % (AUTO) 85.2 %; PLT - PLATELET COUNT 93 10^3/uL (130-450); RED BLOOD COUNT 3.75 10^6/uL (4.70-6.10); RED CELL DISTRIBUTION WIDTH 16.9 % (12.0-15.0); WHITE BLOOD COUNT 9.2 x10^3/uL (4.8-10.8)
[2023-06-09] MEDS ORDERED: DROPERIDOL 5 MG/2 ML VIAL IVP STA (12:00)
[2023-06-09] MEDS ORDERED: LORazepam 2 MG/ML VIAL IVP STA (12:00)
--- NOTE | 2023-06-09 12:05 | ED Physician Documentation ---
PD HPI NVD - Stated complaint Stated Complaint: N/V RESTLESS LEGS - Chief complaint Chief Complaint: Abd Pain - History obtained from History obtained from: Patient - Additonal information Additional information: The patient comes to the emergency department chief complaint of abdominal pain, nausea and vomiting that has been going on on and off for the last several days. He has a history of gastroparesis and also, smokes marijuana intermittently. He states that this episode feels fairly consistent with previous episodes exacerbation of gastroparesis. He states that he is on dialysis Friday We friday, but does make some urine. Today is Friday and he has skipped his dialysis to come to the ED. He states that he did miss the previous Friday's dialysis but was able to go on Friday to make up for it. The patient states that he just did not feel like he could sit through dialysis with the nausea. He states that he always gets a pain in his abdomen like "ground glass is being shoved through my system". He does state he has had a cough but he thinks it is mainly from all the vomiting. His last episode of vomiting was about 25 minutes ago. He has been able to keep down sips of water in between. No fevers or chills. No new symptoms. No other complaints at this time. PD PAST MEDICAL HISTORY - Past Medical History Cardiovascular: None Respiratory: None Endocrine/Autoimmune: Type 2 diabetes GI: Pancreatitis : Renal insuffiency HEENT: None Psych: Depression, Claustrophobia Musculoskeletal: Osteoarthritis, Chronic back pain Derm: None - Past Surgical History Past Surgical History: No HEENT: Tonsil/Adenoidectomy - Present Medications Home Medications: Ambulatory Orders Medication Instructions Recorded Confirmed ondansetron HCL [Zofran] 4 mg PO Q6H PRN #10 tablet 05/31/17 06/06/23 Albuterol Sulfate [Proair 1 - 2 puffs IH Q6HR PRN 12/26/22 12/26/22 Digihaler] Atorvastatin [Lipitor] 10 mg PO HS 12/26/22 12/26/22 Ferrous Sulfate [Feosol] 325 mg PO DAILY 12/26/22 06/06/23 Fluticasone Propion/Salmeterol 1 each IH DAILY 12/26/22 06/06/23 [Airduo Respiclick 113-14 Mcg] Fluticasone [Flonase] 1 sprays GREGORIO DAILY 12/26/22 12/26/22 Insulin Detemir [Levemir] 10 unit SUBQ DAILY 12/26/22 12/26/22 Insulin Detemir [Levemir] 20 unit SUBQ QPM 12/26/22 12/26/22 Insulin Lispro [Humalog] 10 unit SUBQ BID 12/26/22 12/26/22 Loratadine [Claritin] 5 mg PO DAILY 12/26/22 12/26/22 Losartan [Cozaar] 100 mg PO DAILY 12/26/22 12/26/22 Omeprazole Magnesium 20 mg PO DAILY 12/26/22 06/06/23 Promethazine [Phenergan] 25 mg PO Q6H PRN #15 tab 12/26/22 Sucralfate [Carafate] 1 gm PO BID #20 tablet 12/26/22 Torsemide 100 mg PO DAILY 12/26/22 06/06/23 Atorvastatin [Lipitor] 10 mg PO DAILY PM 06/06/23 06/06/23 Metoclopramide [Reglan] 10 mg PO Q6HR 06/06/23 06/06/23 NIFEdipine [Nifedipine ER] 60 mg PO DAILY 06/06/23 06/06/23 calcitrioL [Rocaltrol] 0.25 mcg PO DAILY 06/06/23 06/06/23 carvediloL [Coreg] 6.25 mg PO BID 06/06/23 06/06/23 cloNIDine [Catapres] 0.1 mg PO BID 06/06/23 06/06/23 hydrOXYzine HCL [Hydroxyzine HCl] 50 mg PO Q6HR PRN 06/06/23 06/06/23 methocarbamoL [Methocarbamol] 500 mg PO TID 06/06/23 06/06/23 prednisoLONE [Prednisolone] 10 mg PO DAILY 06/06/23 06/06/23 rOPINIRole [Requip] 1 mg PO TID 06/06/23 06/06/23 Promethazine [Phenergan] 25 mg PO Q6H PRN #10 tab 06/07/23 - Allergies Allergies/Adverse Reactions: Allergies Allergy/AdvReac Type Severity Reaction Status Date / Time meperidine HCl * Allergy Itching Verified 06/09/23 11:48 [From Demerol] peanut Allergy Anaphylaxis Verified 06/09/23 12:03 - Social History Does the pt smoke?: No Smoking Status: Never smoker Does the pt have substance abuse?: Yes Substance Use and Type: Marijuana - Immunizations Immunizations are current?: Yes - POLST Patient has POLST: No PD ED PE NORMAL - Vitals Vital signs reviewed: Yes - General General: Alert and oriented X 3, No acute distress, Well developed/nourished - HEENT HEENT: Atraumatic, PERRL, EOMI, Moist mucous membranes - Neck Neck: Supple, no meningeal sign - Cardiac Cardiac: RRR, No murmur, Strong equal pulses - Respiratory Respiratory: No respiratory distress, Clear bilaterally - Abdomen Abdomen: Soft, Non distended, Other (Mild low abdominal tenderness, no rebound or guarding.) - Derm Derm: Normal color, Warm and dry, No rash - Extremities Extremities: No deformity, No edema - Neuro Neuro: Alert and oriented X 3 - Psych Psych: Normal mood, Normal affect Results - Vitals Vitals: Oxygen O2 Source Room air - Labs Labs: Laboratory Tests 06/09/23 06/09/23 06/09/23 11:28 11:42 12:20 WBC 9.2 RBC 3.75 L Hgb 11.0 L Hct 32.5 L MCV 86.7 MCH 29.3 MCHC 33.8 RDW 16.9 H Plt Count 93 L MPV 11.1 Neut # (Auto) 7.8 H Lymph # (Auto) 0.6 L [place] # (Auto) 0.7 Eos # (Auto) 0.0 Baso # (Auto) 0.0 Absolute Nucleated RBC 0.00 Nucleated RBC % 0.0 Sodium 126 L Potassium 4.3 Chloride 89 L Carbon Dioxide 25 Anion Gap 12.0 BUN 66 H Creatinine 6.4 H Estimated GFR (MDRD) 9 L Glucose 258 H POC Whole Bld Glucose 242 H Calcium 9.3 Total Bilirubin 0.9 AST 421 H ALT 299 H Alkaline Phosphatase 124 H Total Protein 6.6 Albumin 3.5 Globulin 3.1 Albumin/Globulin Ratio 1.1 Lipase 9 L PD Medical Decision Making - ED course Complexity details: reviewed old records, reviewed results, re-evaluated patient, considered differential, d/w patient ED course: The patient's vital signs were completely normal. He was treated symptomatically with droperidol and a small dose of Ativan. Laboratory studies were obtained. Laboratory studies showed the expected abnormalities of renal function, but otherwise, were not remarkable for acutely concerning findings. The patient was given a dose of droperidol and Ativan and was found to be feeling quite a bit better. [place] he was stable for discharge home. We have discussed nausea control at home, the need for follow-up with his outpatient doctors, and the usual indications for return. Departure - Departure Disposition: 01 Home, Self Care Clinical Impression: Diabetic gastroparesis, Cyclic vomiting syndrome, End stage renal disease on dialysis due to type 1 diabetes mellitus Condition: Stable Instructions: ED Nausea Vomiting Comments: You have been treated in the emergency department for your nausea and your anxiety. Your labs are baseline but it is very important for you to follow up as soon as possible for your next dialysis appointment. Please continue to work with your primary doctor on your nonemergent concerns, like the hallucinogenic side effects of dialysis and the restless leg syndrome you have been having. He will also need to work getting better control of your nausea at home with your doctors. Please continue drinking plenty of water to stay hydrated. Forms: PCP List Discharge Date/Time: 06/09/23 13:13
[2023-06-09 13:07] LABS: ALBUMIN 3.5 g/dL (3.2-5.5); ALBUMIN/GLOBULIN RATIO 1.1 (1.0-2.2); BILIRUBIN,TOTAL 0.9 mg/dL (0.2-1.0); CALCIUM 9.3 mg/dL (8.5-10.3); CREATININE 6.4 mg/dL (0.6-1.3); POTASSIUM 4.3 mmol/L (3.5-4.5); TOTAL PROTEIN 6.6 g/dL (6.4-8.9)
[2023-06-09 13:19] VITALS: BP 118/89; O2SAT 98
--- NOTE | 2023-06-30 21:57 | ED Physician Documentation ---
ED Addendum - Addendum Addendum: 06/30/23 21:56 As stated, the patient is a type I diabetic. Erroneously stated to be type II diabetic and nursing documentation of past medical history, which has been imported into the physician note.
== END 2023-06-09 13:13 | disposition home or self-care (01) ==
LOC: ED 11:15
DX: E10.43 Type 1 diabetes mellitus with diabetic autonomic (poly)neuropathy (principal); K31.84 Gastroparesis; E10.22 Type 1 diabetes mellitus with diabetic chronic kidney disease; N18.6 End stage renal disease; R11.15 Cyclical vomiting syndrome unrelated to migraine; Z99.2 Dependence on renal dialysis; Z79.899 Other long term (current) drug therapy; Z79.51 Long term (current) use of inhaled steroids
CPT/HCPCS: 36415; 80053; 83690; 85025; 96374; 99283; 99284; J2060

== ENCOUNTER 2023-11-20 12:25 | Outpatient (CLI) | payer OTHER, MEDICAID | END 2023-11-20 23:59 | disposition short-term general hospital (02) | LOC: EMS 12:25 | DX: R07.81 Pleurodynia (principal); R10.11 Right upper quadrant pain; R10.32 Left lower quadrant pain; V43.52XA Car driver injured in collision with other type car in traffic accident, initial encounter; Y92.413 State road as the place of occurrence of the external cause; Z79.01 Long term (current) use of anticoagulants | CPT/HCPCS: A0425; A0429 ==

== ENCOUNTER 2023-12-25 09:14 | Emergency (ER) | payer MEDICAID ==
[2023-12-25 09:52] LABS: BASOPHILS # (AUTO) 0.1 10^3/uL (0.0-0.1); BASOPHILS % (AUTO) 1.4 %; EOSINOPHILS # (AUTO) 0.2 10^3/uL (0.0-0.7); EOSINOPHILS % (AUTO) 4.8 %; HCT - HEMATOCRIT 32.4 % (42.0-52.0); HGB - HEMOGLOBIN 10.1 g/dL (14.0-18.0); MEAN CORPUSCULAR HEMOGLOBIN 29.1 pg (27.0-31.0); MEAN CORPUSCULAR HGB CONC 31.2 g/dL (32.0-36.0); MEAN CORPUSCULAR VOLUME 93.4 fL (80.0-94.0); MEAN PLATELET VOLUME 9.1 fL (7.4-11.4); MONOCYTES # (AUTO) 0.4 10^3/uL (0.0-1.0); MONOCYTES % (AUTO) 9.1 %; NEUTROPHILS # (AUTO) 2.7 10^3/uL (1.5-6.6); NEUTROPHILS % (AUTO) 61.5 %; PLT - PLATELET COUNT 218 10^3/uL (130-450); RED BLOOD COUNT 3.47 10^6/uL (4.70-6.10); RED CELL DISTRIBUTION WIDTH 14.8 % (12.0-15.0); WHITE BLOOD COUNT 4.4 x10^3/uL (4.8-10.8)
--- NOTE | 2023-12-25 10:09 | XRAY Report ---
PROCEDURE: Chest 1V INDICATIONS: chest pain TECHNIQUE: One view of the chest was acquired. COMPARISON: Single view the chest dated 06/06/2023. FINDINGS: Surgical changes and devices: Left hemodialysis catheter is noted, the tip of which is projected ove r the right atrium. Lungs and pleura: There is a large right pleural effusion. No left effusion. The left lung is clear. Mediastinum: Mediastinal contours appear normal. Heart size is normal. Bones and chest wall: No suspicious bony lesions. Overlying soft tissues appear unremarkable. IMPRESSION: Large right pleural effusion. Reviewed by: Sharron Quiroga MD on 12/25/2023 10:08 AM PST Approved by: Sharron Quiroga MD on 12/25/2023 10:08 AM PST Station ID: [id number]
[2023-12-25 10:15] LABS: ALBUMIN/GLOBULIN RATIO 1.3 (1.0-2.2); ALKALINE PHOSPHATASE 72 IU/L (42-121); ALT ALANINE AMINOTRANSFERASE < 3 IU/L (10-60); AST ASPARTATE AMINOTRANSFERASE 12 IU/L (10-42); BILIRUBIN,TOTAL 0.5 mg/dL (0.2-1.0); BUN - BLOOD UREA NITROGEN 22 mg/dL (6-20); CALCIUM 9.2 mg/dL (8.5-10.3); CARBON DIOXIDE - CO2 27 mmol/L (21-32); CHLORIDE 100 mmol/L (101-111); CREATININE 5.7 mg/dL (0.6-1.3); GFR - MDRD 10 (>89); GLUCOSE 101 mg/dL (74-104); LIPASE < 10 U/L (11-82); POTASSIUM 4.5 mmol/L (3.5-4.5); SODIUM 137 mmol/L (135-145)
--- NOTE | 2023-12-25 10:55 | CT Report ---
PROCEDURE: Chest WO INDICATIONS: pleural effusion, hard to assess size on XR TECHNIQUE: A CT scan of the chest was performed. Intravenous contrast media was not administered. Images were re corded and evaluated at appropriate window settings. Reformats: axial MIP of the chest, coronal and s agittal. For radiation dose reduction, the following was used: automated exposure control, adjustment of mA and/or kV according to patient size. COMPARISON: CT of the abdomen and pelvis dated 06/06/2023. FINDINGS: Image quality: Diagnostic. Chest wall and lower neck: No thyroid nodule which requires sonographic follow up. No axillary or sup raclavicular adenopathy by size. Lungs and pleura: There is a large low density right pleural effusion. Compressive atelectasis or con solidation is present within the dependent lung. There is a small low-density left pleural effusion. There is a 7 mm left basilar pulmonary nodule which was likely present on the comparison CT dated 06/06. Mediastinum: Heart size is enlarged. No pericardial effusion. No large vessel abnormality. No mediast inal adenopathy by size criteria. Dense atheromatous calcifications are present within the coronary arteries. There is a left hemodialysis catheter, the tip of which is in the right atrium. Bones: No aggressive osseous abnormality. Upper Abdomen: Unremarkable. IMPRESSION: 1. Large right pleural effusion and compressive atelectasis or consolidation in the adjacent dependen t lung. 2. Small low-density left pleural effusion. 3. 7 mm left basilar pulmonary nodule 6-12 month follow-up recommended. Reviewed by: Sharron Quiroga MD on 12/25/2023 10:[address] [facility] Approved by: Sharron Quiroga MD on 12/25/2023 10:[address] [facility] Station ID: [id number]
[2023-12-25 11:06] LABS: B. PARAPERTUSSIS- RESP PCR PAN NOT DETECTED; B. PERTUSSIS- RESP PCR PANEL NOT DETECTED; C. PNEUMONIAE- RESP PCR PANEL NOT DETECTED; CORONAVIRUS 229E-RESP PCR NOT DETECTED; CORONAVIRUS HKU1-RESP PCR NOT DETECTED; CORONAVIRUS NL63-RESP PCR NOT DETECTED; CORONAVIRUS OC43-RESP PCR NOT DETECTED; HUMAN METAPNEUMOVIRUS NOT DETECTED; INFLUENZA A- RESP PCR PANEL NOT DETECTED; INFLUENZA B - RESP PCR PANEL NOT DETECTED; M. PNEUMONIAE- RESP PCR PANEL NOT DETECTED; PARAINFLUENZA VIRUS 1 NOT DETECTED; PARAINFLUENZA VIRUS 2 NOT DETECTED; PARAINFLUENZA VIRUS 3 NOT DETECTED; PARAINFLUENZA VIRUS 4 NOT DETECTED; RHINOVIRUS/ENTEROVIRUS NOT DETECTED; RSV- RESP PCR PANEL NOT DETECTED; SARS-CoV-2 -RESP PCR PANEL NOT DETECTED
--- NOTE | 2023-12-25 13:51 | ED Physician Documentation ---
PD HPI DYSPNEA - Stated complaint Stated Complaint: SOA,COUGHING - Chief complaint Chief Complaint: Resp - History obtained from History obtained from: Patient - Additional information Additional information: The patient comes to the emergency department chief complaint of dyspnea, increasing over the last few weeks. He states that he was recently admitted to [facility] for intracranial hemorrhage and craniotomy. He just got discharged yesterday and states that he did let them know about the shortness of breath while he was in the hospital but "they did not do anything about it". He states he had a couple of chest x-rays. Patient states he did not sleep very well last night because he just could not breathe well. He states every time he lays back it is worse. The patient denies nausea or vomiting. No chest pain. No fevers. The patient has a history of end-stage renal disease on hemodialysis and is due for his next dialysis treatment tomorrow. He has several friends who live in h same building who have been looking in on him and helping to take care of him. He is accompanied to the ED today by a friend. PD PAST MEDICAL HISTORY - Past Medical History Past Medical History: Yes Cardiovascular: None, [place] Respiratory: None Endocrine/Autoimmune: Type 2 diabetes GI: Pancreatitis : Dialysis, Renal insuffiency HEENT: None Psych: Depression, Claustrophobia Musculoskeletal: Osteoarthritis, Chronic back pain Derm: None - Past Surgical History Past Surgical History: No Cardiovascular: Coronary stent Neuro: Other HEENT: Tonsil/Adenoidectomy - Present Medications Home Medications: Ambulatory Orders Medication Instructions Recorded Confirmed ondansetron HCL [Zofran] 4 mg PO Q6H PRN #10 tablet 05/31/17 12/25/23 Albuterol Sulfate [Proair 1 - 2 puffs IH Q6HR PRN 12/26/22 12/25/23 Digihaler] Atorvastatin [Lipitor] 40 mg PO HS 12/26/22 12/25/23 Fluticasone Propion/Salmeterol 1 each IH DAILY 12/26/22 12/25/23 [Airduo Respiclick 113-14 Mcg] Insulin Detemir [Levemir] 10 unit SUBQ DAILY 12/26/22 12/25/23 Insulin Detemir [Levemir] 20 unit SUBQ QPM 12/26/22 12/25/23 Torsemide 100 mg PO DAILY 12/26/22 12/25/23 calcitrioL [Rocaltrol] 0.25 mcg PO DAILY 06/06/23 12/25/23 carvediloL [Coreg] 25 mg PO BID 06/06/23 12/25/23 hydrOXYzine HCL [Hydroxyzine HCl] 50 mg PO Q6HR PRN 06/06/23 12/25/23 methocarbamoL [Methocarbamol] 750 mg PO HS 06/06/23 12/25/23 rOPINIRole [Requip] 1 mg PO TID 06/06/23 12/25/23 Aspirin [Vazalore] 81 mg PO DAILY 12/25/23 12/25/23 B Complex W-C No.20/Folic Acid 1 mg PO DAILY 12/25/23 12/25/23 [Wescaps Capsule] Clopidogrel [Plavix] 75 mg PO DAILY 12/25/23 12/25/23 Fluticasone/Vilanterol [Breo 1 each IH DAILY 12/25/23 12/25/23 Ellipta 200-25 Mcg INH] Folic Acid/Vit B Complex and C 0.8 mg PO DAILY 12/25/23 12/25/23 [Nancy-Garcia Tablet] Levetiracetam [Keppra Xr] 500 mg PO DAILY 12/25/23 12/25/23 Loratadine [Children's Claritin] 5 mg PO DAILY 12/25/23 12/25/23 Pantoprazole [Protonix] 40 mg PO DAILY 12/25/23 12/25/23 Sacubitril/Valsartan [Entresto 49 1 each PO DAILY 12/25/23 12/25/23 mg-51 mg Tablet] Senna [Senokot] 17.2 mg PO BID 12/25/23 12/25/23 Sevelamer Carbonate [Renvela] 1,600 mg PO BID 12/25/23 12/25/23 Sodium Zirconium Cyclosilicate 10 gm PO DAILY 12/25/23 12/25/23 [Lokelma] amLODIPine [Norvasc] 10 mg PO DAILY 12/25/23 12/25/23 levETIRAcetam [Elepsia Xr] 1,000 mg PO DAILY 12/25/23 12/25/23 oxyCODONE [Roxicodone] 5 mg PO Q6H PRN 12/25/23 12/25/23 polyethylene glycoL 3350 [Miralax] 17 gm PO DAILY 12/25/23 12/25/23 - Allergies Allergies/Adverse Reactions: Allergies Allergy/AdvReac Type Severity Reaction Status Date / Time droperidol Allergy Unknown Verified 12/25/23 10:05 hydromorphone Allergy Itching Verified 12/25/23 10:05 meperidine HCl * Allergy Itching Verified 12/25/23 09:30 [From Demerol] peanut Allergy Anaphylaxis Verified 12/25/23 09:30 - Social History Does the pt smoke?: No Smoking Status: Never smoker Does the pt drink ETOH?: No Does the pt have substance abuse?: Yes - Immunizations Immunizations are current?: Yes - POLST Patient has POLST: No PD ED PE NORMAL - Vitals Vital signs reviewed: Yes - General General: Alert and oriented X 3, No acute distress, Well developed/nourished, Other (The patient appears generally in poor health but is in no apparent distress.) - HEENT HEENT: Atraumatic, PERRL, EOMI, Moist mucous membranes - Neck Neck: Supple, no meningeal sign - Cardiac Cardiac: RRR, No murmur - Respiratory Respiratory: No respiratory distress, Other (Significantly decreased breath sounds in the right lung field. 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, Normal speech, Other (No gross deficits.) - Psych Psych: Normal mood, Normal affect Results - Vitals Vitals: Vital Signs - 24 hr 12/25/23 12/25/23 12/25/23 09:22 10:29 10:56 Temperature 36.4 C L Heart Rate 73 72 Respiratory 20 17 Rate Blood Pressure 181/80 H 180/94 H O2 Saturation 95 94 87 L If not protocol : Oxygen Flow, liters/minute 12/25/23 12/25/23 12/25/23 10:58 11:00 12:00 Temperature 36.5 C Heart Rate 68 68 Respiratory 18 16 Rate Blood Pressure 157/76 H 165/76 H O2 Saturation 95 97 96 If not protocol 2 2 2 : Oxygen Flow, liters/minute 12/25/23 13:30 Temperature Heart Rate 68 Respiratory 18 Rate Blood Pressure 166/92 H O2 Saturation 97 If not protocol 3 : Oxygen Flow, liters/minute Oxygen O2 Source Room air Oxygen Flow Rate 2 - Labs Labs: Laboratory Tests 12/25/23 12/25/23 12/25/23 09:47 09:47 09:47 WBC 4.4 L RBC 3.47 L Hgb 10.1 L Hct 32.4 L MCV 93.4 MCH 29.1 MCHC 31.2 L RDW 14.8 Plt Count 218 MPV 9.1 Neut # (Auto) 2.7 Lymph # (Auto) 1.0 L Collin # (Auto) 0.4 Eos # (Auto) 0.2 Baso # (Auto) 0.1 Absolute Nucleated RBC 0.00 Nucleated RBC % 0.0 Sodium 137 Potassium 4.5 Chloride 100 L Carbon Dioxide 27 Anion Gap 10.0 BUN 22 H Creatinine 5.7 H Estimated GFR (MDRD) 10 L Glucose 101 Calcium 9.2 Total Bilirubin 0.5 AST 12 ALT < 3 L Alkaline Phosphatase 72 B-Natriuretic Peptide 9384 H Total Protein 7.0 Albumin 4.0 Globulin 3.0 Albumin/Globulin Ratio 1.3 Lipase < 10 L Nasal Adenovirus (PCR) Nasal B. parapertussis DNA (PCR) Nasal Coronavir 229E PCR Nasal Coronavir HKU1 PCR Nasal Coronavir NL63 PCR Nasal Coronavir OC43 PCR Nasal Enterovir/Rhinovir PCR Nasal Influenza B PCR Nasal Influenza A PCR Nasal Parainfluen 1 PCR Nasal Parainfluen 2 PCR Nasal Parainfluen 3 PCR Nasal Parainfluen 4 PCR Nasal RSV (PCR) Nasal B.pertussis DNA PCR Nasal C.pneumoniae (PCR) Venu Human Metapneumo PCR Nasal M.pneumoniae (PCR) Nasal SARS-CoV-2 (PCR) 12/25/23 09:57 WBC RBC Hgb Hct MCV MCH MCHC RDW Plt Count MPV Neut # (Auto) Lymph # (Auto) Collin # (Auto) Eos # (Auto) Baso # (Auto) Absolute Nucleated RBC Nucleated RBC % Sodium Potassium Chloride Carbon Dioxide Anion Gap BUN Creatinine Estimated GFR (MDRD) Glucose Calcium Total Bilirubin AST ALT Alkaline Phosphatase B-Natriuretic Peptide Total Protein Albumin Globulin Albumin/Globulin Ratio Lipase Nasal Adenovirus (PCR) NOT DETECTED Nasal B. parapertussis DNA (PCR) NOT DETECTED Nasal Coronavir 229E PCR NOT DETECTED Nasal Coronavir HKU1 PCR NOT DETECTED Nasal Coronavir NL63 PCR NOT DETECTED Nasal Coronavir OC43 PCR NOT DETECTED Nasal Enterovir/Rhinovir PCR NOT DETECTED Nasal Influenza B PCR NOT DETECTED Nasal Influenza A PCR NOT DETECTED Nasal Parainfluen 1 PCR NOT DETECTED Nasal Parainfluen 2 PCR NOT DETECTED Nasal Parainfluen 3 PCR NOT DETECTED Nasal Parainfluen 4 PCR NOT DETECTED Nasal RSV (PCR) NOT DETECTED Nasal B.pertussis DNA PCR NOT DETECTED Nasal C.pneumoniae (PCR) NOT DETECTED Venu Human Metapneumo PCR NOT DETECTED Nasal M.pneumoniae (PCR) NOT DETECTED Nasal SARS-CoV-2 (PCR) NOT DETECTED - Rads (name of study) Chest x-ray Relevant Findings:: Final report received, See rad report (Large right pleural effusion) CT chest no contrast Relevant Findings:: Final report received, See rad report (Large right pleural effusion.) Procedures - Thoracentesis - Major Preparation: Consent obtained, Sterile prep and drape, Sitting, Local - lidocaine Technique: Intercostal space - enter (6), Midscapular line, Right Fluid: Clear, Other (2 L removed.) Aftercare: CXR obtained, No pneumo, No complications, Patient tolerated well, Dressing applied PD Medical Decision Making - ED course Complexity details: reviewed old records, reviewed results, re-evaluated patient, considered differential, d/w patient ED course: The patient was worked up with laboratory studies which were unremarkable, other than his known renal failure. Imaging showed a large right pleural effusion, and I felt that even though the patient had an oxygen saturation in the 90s and was not severely struggling, he would benefit from having thoracentesis, as he has had a lot of health challenges lately for which she is already struggling to bounce back. The patient was very much desirous to have the fluid drained and had been through this before. He signed consent after thorough discussion and thoracentesis was performed as above. The patient reported feeling much better after 2 L of fluid removed from his chest cavity and repeat x-ray showed significant reexpansion of the lung with no pneumothorax. The patient was stable for discharge home. I have emphasized the importance of going to dialysis tomorrow as planned. Departure - Departure Disposition: 01 Home, Self Care Clinical Impression: Pleural effusion Condition: Stable Instructions: ED Effusion Pleural Comments: Your chest was drained of 2 L of fluid on the right side today. Your oxygen saturations been good and your repeat chest x-ray is much improved. Please follow-up for your dialysis tomorrow as planned. Forms: PCP List
--- NOTE | 2023-12-25 14:41 | XRAY Report ---
PROCEDURE: Post Thoracentesis 1V CXR INDICATIONS: post thoracentesis TECHNIQUE: One view of the chest was acquired. COMPARISON: Chest radiograph 12/25/2023. FINDINGS: Surgical changes and devices: Left central venous catheter with tip projecting over the right atrium . Lungs and pleura: No pneumothorax. Interval decrease in right pleural effusion status post thoracent esis. Small right pleural effusion remains. No dense airspace consolidation. Mediastinum: Mediastinal contours appear normal. Heart size is normal. Bones and chest wall: No suspicious bony lesions. Overlying soft tissues appear unremarkable. IMPRESSION: Status post interval right thoracentesis with decreased right pleural effusion. No pneumothorax. Reviewed by: Tiffanie Pineda MD on 12/25/2023 2:40 PM PST Approved by: Tiffanie Pineda MD on 12/25/2023 2:40 PM PST Station ID: [id number]
[2023-12-25 14:47] VITALS: BP 179/90; O2SAT 99
== END 2023-12-25 15:01 | disposition home or self-care (01) ==
LOC: ED 09:14
DX: J90 Pleural effusion, not elsewhere classified (principal); N18.6 End stage renal disease; Z99.2 Dependence on renal dialysis; Z86.79 Personal history of other diseases of the circulatory system; Z98.890 Other specified postprocedural states
CPT/HCPCS: 32554; 36415; 80053; 83690; 83880; 85025; 87633; 99284

== ENCOUNTER 2024-01-03 08:42 | Emergency (ER) | payer MEDICAID ==
--- NOTE | 2024-01-03 09:13 | ED Physician Documentation ---
PD HPI DYSPNEA - Stated complaint Stated Complaint: SOA,COUGH - Chief complaint Chief Complaint: Resp - History obtained from History obtained from: Patient - History of Present Illness Timing - onset: How many days ago (few days of increasing dyspnea, cogh. No fevers. No purulent sputum.) Timing - onset during: Light activity Timing - duration: Days Timing - details: Gradual onset, Still present Inciting event(s): No: Out of meds, URI Similar symptoms before: Diagnosis (had right effusion with syimolar symptosm that improved with thoracentesis of 2 liters a month ago at [facility].) Recently seen: Clinic, Emergency Dept Review of Systems Constitutional: denies: Fever, Chills Nose: denies: Rhinorrhea / runny nose, Congestion Throat: denies: Sore throat Cardiac: denies: Chest pain / pressure Respiratory: reports: Dyspnea, Cough. denies: Wheezing GI: denies: Vomiting, Diarrhea Musculoskeletal: denies: Extremity swelling PD PAST MEDICAL HISTORY - Past Medical History Past Medical History: Yes Cardiovascular: None, [place] Respiratory: None Endocrine/Autoimmune: Type 2 diabetes GI: Pancreatitis : Dialysis, Renal insuffiency HEENT: None Psych: Depression, Claustrophobia Musculoskeletal: Osteoarthritis, Chronic back pain Derm: None - Past Surgical History Past Surgical History: No Cardiovascular: Coronary stent Neuro: Other HEENT: Tonsil/Adenoidectomy - Present Medications Home Medications: Ambulatory Orders Medication Instructions Recorded Confirmed ondansetron HCL [Zofran] 4 mg PO Q6H PRN #10 tablet 05/31/17 01/03/24 Albuterol Sulfate [Proair 1 - 2 puffs IH Q6HR PRN 12/26/22 01/03/24 Digihaler] Atorvastatin [Lipitor] 40 mg PO HS 12/26/22 01/03/24 Insulin Detemir [Levemir] 20 unit SUBQ QPM 12/26/22 01/03/24 Torsemide 100 mg PO DAILY 12/26/22 01/03/24 calcitrioL [Rocaltrol] 0.25 mcg PO DAILY 06/06/23 01/03/24 carvediloL [Coreg] 25 mg PO BID 06/06/23 01/03/24 methocarbamoL [Methocarbamol] 750 mg PO HS 06/06/23 01/03/24 rOPINIRole [Requip] 1 mg PO TID 06/06/23 01/03/24 B Complex W-C No.20/Folic Acid 1 mg PO DAILY 12/25/23 12/25/23 [Wescaps Capsule] Clopidogrel [Plavix] 75 mg PO DAILY 12/25/23 01/03/24 Fluticasone/Vilanterol [Breo 1 each IH DAILY 12/25/23 01/03/24 Ellipta 200-25 Mcg INH] Folic Acid/Vit B Complex and C 0.8 mg PO DAILY 12/25/23 12/25/23 [Nancy-Garcia Tablet] Levetiracetam [Keppra Xr] 500 mg PO DAILY 12/25/23 01/03/24 Pantoprazole [Protonix] 40 mg PO DAILY 12/25/23 01/03/24 Sacubitril/Valsartan [Entresto 49 1 each PO DAILY 12/25/23 01/03/24 mg-51 mg Tablet] Sevelamer Carbonate [Renvela] 1,600 mg PO BID 12/25/23 01/03/24 amLODIPine [Norvasc] 10 mg PO DAILY 12/25/23 01/03/24 levETIRAcetam [Elepsia Xr] 1,000 mg PO DAILY 12/25/23 01/03/24 oxyCODONE [Roxicodone] 5 mg PO Q6H PRN 12/25/23 01/03/24 Albuterol Sulf [Ventolin Hfa 2 - 3 puffs INH QID #1 each 01/03/24 Inhaler] Amox/Clav 875/125 [Augmentin] 1 each PO Q12H #14 tablet 01/03/24 - Allergies Allergies/Adverse Reactions: Allergies Allergy/AdvReac Type Severity Reaction Status Date / Time droperidol Allergy Unknown Verified 01/03/24 09:07 hydromorphone Allergy Itching Verified 01/03/24 09:07 meperidine HCl * Allergy Itching Verified 01/03/24 09:07 [From Demerol] peanut Allergy Anaphylaxis Verified 01/03/24 09:07 - Social History Does the pt smoke?: No Smoking Status: Never smoker Does the pt drink ETOH?: No Does the pt have substance abuse?: Yes - Immunizations Immunizations are current?: Yes - POLST Patient has POLST: No PD ED PE NORMAL - Vitals Vital signs reviewed: Yes - General General: Alert and oriented X 3, Well developed/nourished - Neck Neck: Supple, no meningeal sign, No adenopathy, No JVD - Cardiac Cardiac: RRR, No murmur - Respiratory Respiratory: No respiratory distress. No: Clear bilaterally (decreased right base, with some crackles sounds focally. Left clear. ) - Abdomen Abdomen: Soft, Non tender Results - Vitals Vitals: Oxygen O2 Source Room air - Labs Labs: Laboratory Tests 01/03/24 01/03/24 01/03/24 09:49 09:49 09:59 WBC 4.8 RBC 3.28 L Hgb 9.7 L Hct 30.4 L MCV 92.7 MCH 29.6 MCHC 31.9 L RDW 16.1 H Plt Count 183 MPV 9.6 Neut # (Auto) 3.0 Lymph # (Auto) 1.1 L Kemper # (Auto) 0.5 Eos # (Auto) 0.2 Baso # (Auto) 0.1 Absolute Nucleated RBC 0.00 Nucleated RBC % 0.0 Sodium 138 Potassium 4.8 H Chloride 101 Carbon Dioxide 28 Anion Gap 9.0 BUN 24 H Creatinine 4.8 H Estimated GFR (MDRD) 13 L Glucose 194 H Calcium 9.3 Phosphorus 3.6 Magnesium 1.6 L Total Bilirubin 0.5 AST 9 L ALT 4 L Alkaline Phosphatase 77 Total Protein 6.6 Albumin 3.8 Globulin 2.8 Albumin/Globulin Ratio 1.4 Lipase 14 Nasal Adenovirus (PCR) NOT DETECTED Nasal B. parapertussis DNA (PCR) NOT DETECTED Nasal Coronavir 229E PCR NOT DETECTED Nasal Coronavir HKU1 PCR NOT DETECTED Nasal Coronavir NL63 PCR NOT DETECTED Nasal Coronavir OC43 PCR NOT DETECTED Nasal Enterovir/Rhinovir PCR NOT DETECTED Nasal Influenza B PCR NOT DETECTED Nasal Influenza A PCR NOT DETECTED Nasal Parainfluen 1 PCR NOT DETECTED Nasal Parainfluen 2 PCR NOT DETECTED Nasal Parainfluen 3 PCR NOT DETECTED Nasal Parainfluen 4 PCR NOT DETECTED Nasal RSV (PCR) NOT DETECTED Nasal B.pertussis DNA PCR NOT DETECTED Nasal C.pneumoniae (PCR) NOT DETECTED Venu Human Metapneumo PCR NOT DETECTED Nasal M.pneumoniae (PCR) NOT DETECTED Nasal SARS-CoV-2 (PCR) NOT DETECTED - Rads (name of study) chest xray Relevant Findings:: Prelim report reviewed (moderate right effusion, new from 12/25/2023.), EMP independent interpretation of test (there is interstitial densitity right lower lobe, atelectasis vs infiltrate. some right effusion, increased from 12/25/2023 after thoracentesis, but not nearly as much as was present originally. I don't think radiologist looked further back than the post- procedure CXR which then has minimal effusion.) PD Medical Decision Making - ED course Complexity details: reviewed results (moderate right pleural effusion, but not nearly as much as was prior to thoracentesis recently. I don't feel it is reaccumulated enough for tapping again as yet. His dyspnea may be improper inflation/aeration or early pneumonia, given some interstitial pattern lower right. ), considered differential, d/w patient Departure - Departure Disposition: 01 Home, Self Care Clinical Impression: Dyspnea, Pleural effusion, Renal failure Condition: Stable Record reviewed to determine appropriate education?: Yes Instructions: ED Dyspnea Shortness of Breath Prescriptions: Amox/Clav 875/125 [Augmentin] 1 each PO Q12H #14 tablet Albuterol Sulf [Ventolin Hfa Inhaler] 2 - 3 puffs INH QID #1 each Comments: You are anemic on your blood count but not much lower than your usual baseline. Your hemoglobin today was 9.7. This is not near low enough to need transfusion with the threshold for that usually being hemoglobin of 7. Your kidney function is of course off and about the same as usual. Your potassium level looks good at 4.8. Your phosphorus level and calcium levels are normal. Magnesium is slightly low at 1.6 but we typically would not supplement that in renal failure. Continue with usual medications. I can prescribe you medication to help with nausea. Your chest x-ray shows some reaccumulation of fluid on the right side of the lung. It is nowhere near as much as it was before being drained but does appear a bit more than it was after drainage. It does not appear large enough to be an easy target for draining nor to account for your symptoms per se right now. It does look like the lower lung field on the right is not getting good aeration. There may be some fluid in there related to infection so I could not discount pneumonia per se. It would make sense to go with an antibiotic in case as well as an inhaler to help open the air passages and better aeration. I think that will help your breathing. Also the Acapella a few times daily to help dislodge any mucous plugging and again better aeration. Recheck if not improving well over the next few days. I sent your prescriptions to your preferred pharmacy. The fluid accumulation around the lung may get bigger and the subsequent draining again but is not large enough at this point. Forms: PCP List Discharge Date/Time: 01/03/24 11:29
[2024-01-03 09:59] LABS: BASOPHILS # (AUTO) 0.1 10^3/uL (0.0-0.1); EOSINOPHILS # (AUTO) 0.2 10^3/uL (0.0-0.7); EOSINOPHILS % (AUTO) 4.2 %; HCT - HEMATOCRIT 30.4 % (42.0-52.0); HGB - HEMOGLOBIN 9.7 g/dL (14.0-18.0); LYMPHOCYTES # (AUTO) 1.1 10^3/uL (1.5-3.5); LYMPHOCYTES % (AUTO) 22.5 %; MEAN CORPUSCULAR HEMOGLOBIN 29.6 pg (27.0-31.0); MEAN CORPUSCULAR HGB CONC 31.9 g/dL (32.0-36.0); MEAN CORPUSCULAR VOLUME 92.7 fL (80.0-94.0); MEAN PLATELET VOLUME 9.6 fL (7.4-11.4); MONOCYTES # (AUTO) 0.5 10^3/uL (0.0-1.0); NEUTROPHILS % (AUTO) 61.9 %; PLT - PLATELET COUNT 183 10^3/uL (130-450); RED BLOOD COUNT 3.28 10^6/uL (4.70-6.10); RED CELL DISTRIBUTION WIDTH 16.1 % (12.0-15.0); WHITE BLOOD COUNT 4.8 x10^3/uL (4.8-10.8)
--- NOTE | 2024-01-03 10:20 | XRAY Report ---
PROCEDURE: Chest 1V INDICATIONS: dyspnea, prior right effusion TECHNIQUE: One view of the chest was acquired. COMPARISON: 12/25/2023 FINDINGS: Surgical changes and devices: Tunneled left-sided dialysis catheter. Lungs and pleura: Moderate right pleural effusion Mediastinum: Mediastinal contours appear normal. Heart size is enlarged. No vascular congestion. Bones and chest wall: No suspicious bony lesions. Overlying soft tissues appear unremarkable. IMPRESSION: Moderate right pleural effusion, new from 12/25/2023 Reviewed by: Sreekanth Varghese MD on 01/03/2024 9:19 AM [facility] Approved by: Sreekanth Varghese MD on 01/03/2024 9:19 AM [facility] Station ID: [id number]
[2024-01-03 10:21] LABS: ALBUMIN 3.8 g/dL (3.2-5.5); ALBUMIN/GLOBULIN RATIO 1.4 (1.0-2.2); BILIRUBIN,TOTAL 0.5 mg/dL (0.2-1.0); CALCIUM 9.3 mg/dL (8.5-10.3); CREATININE 4.8 mg/dL (0.6-1.3); MAGNESIUM 1.6 mg/dL (1.7-2.3); PHOSPHORUS 3.6 mg/dL (2.5-5.0); POTASSIUM 4.8 mmol/L (3.5-4.5); TOTAL PROTEIN 6.6 g/dL (6.4-8.9)
[2024-01-03] MEDS: ALBUTEROL NEB 2.5 MG/3 ML INH STA (10:26)
[2024-01-03 11:09] LABS: CORONAVIRUS 229E-RESP PCR NOT DETECTED; CORONAVIRUS HKU1-RESP PCR NOT DETECTED; CORONAVIRUS NL63-RESP PCR NOT DETECTED; CORONAVIRUS OC43-RESP PCR NOT DETECTED; HUMAN METAPNEUMOVIRUS NOT DETECTED; INFLUENZA A- RESP PCR PANEL NOT DETECTED; INFLUENZA B - RESP PCR PANEL NOT DETECTED; PARAINFLUENZA VIRUS 1 NOT DETECTED; PARAINFLUENZA VIRUS 2 NOT DETECTED; PARAINFLUENZA VIRUS 3 NOT DETECTED; PARAINFLUENZA VIRUS 4 NOT DETECTED; RHINOVIRUS/ENTEROVIRUS NOT DETECTED; RSV- RESP PCR PANEL NOT DETECTED; SARS-CoV-2 -RESP PCR PANEL NOT DETECTED
[2024-01-03 11:10] LABS: B. PARAPERTUSSIS- RESP PCR PAN NOT DETECTED; B. PERTUSSIS- RESP PCR PANEL NOT DETECTED; C. PNEUMONIAE- RESP PCR PANEL NOT DETECTED; M. PNEUMONIAE- RESP PCR PANEL NOT DETECTED
[2024-01-03] MEDS: AMOX/CLAV 875 MG/125 MG TABLET PO STA (11:21)
[2024-01-03 11:29] VITALS: BP 148/96; O2SAT 96
== END 2024-01-03 11:29 | disposition home or self-care (01) ==
LOC: ED 08:42
DX: J90 Pleural effusion, not elsewhere classified (principal); N19 Unspecified kidney failure; E11.9 Type 2 diabetes mellitus without complications; Z79.4 Long term (current) use of insulin; Z11.52 Encounter for screening for COVID-19
CPT/HCPCS: 36415; 71045; 80053; 83690; 83735; 84100; 85025; 87633; 94640; 99284; A9270

== ENCOUNTER 2024-05-26 13:31 | Emergency (ER) | payer MEDICAID ==
--- NOTE | 2024-05-26 13:48 | ED Physician Documentation ---
History of Present Illness - Stated complaint Stated Complaint: RT SIDE FACE LUMP/PX,BLOUNT - Chief complaint Chief Complaint: General - Additonal information Additional information: 59-year-old male with history of UT, type 2 diabetes, pancreatitis, dialysis, renal insufficiency, depression, claustrophobia, osteoarthritis presents emergency department for multitude of complaints. Patient reports body aches, chest tightness, headache, cough, blurred vision as well as itching . He has been feeling generalized malaise and unwellness for about the last 5 days. Also states that he has a new lump on the left side of his face near his Right eye he says it started out small but has been growing in size over the last couple days says it is painful and quite itchy. He also reports that he had a thoracentesis a few months ago and has dialysis about 3 times a week. Patient also says that he has been having a headache with blurred vision as well as jaw pain cough and shortness of breath. He has not been able to get into see anyone for this he has not missed any recent dialysis appointments and has also not had any recent medication changes. PD PAST MEDICAL HISTORY - Past Medical History Past Medical History: Yes Cardiovascular: None, UT Respiratory: None Endocrine/Autoimmune: Type 2 diabetes GI: Pancreatitis : Dialysis, Renal insuffiency HEENT: None Psych: Depression, Claustrophobia Musculoskeletal: Osteoarthritis, Chronic back pain Derm: None - Past Surgical History Past Surgical History: No Cardiovascular: Coronary stent Neuro: Other HEENT: Tonsil/Adenoidectomy - Present Medications Home Medications: Ambulatory Orders Medication Instructions Recorded Confirmed ondansetron HCL [Zofran] 4 mg PO Q6H PRN #10 tablet 05/31/17 01/03/24 Albuterol Sulfate [Proair 1 - 2 puffs IH Q6HR PRN 12/26/22 01/03/24 Digihaler] Atorvastatin [Lipitor] 40 mg PO HS 12/26/22 01/03/24 Insulin Detemir [Levemir] 20 unit SUBQ QPM 12/26/22 01/03/24 Torsemide 100 mg PO DAILY 12/26/22 01/03/24 calcitrioL [Rocaltrol] 0.25 mcg PO DAILY 06/06/23 01/03/24 carvediloL [Coreg] 25 mg PO BID 06/06/23 01/03/24 methocarbamoL [Methocarbamol] 750 mg PO HS 06/06/23 01/03/24 rOPINIRole [Requip] 1 mg PO TID 06/06/23 01/03/24 B Complex W-C No.20/Folic Acid 1 mg PO DAILY 12/25/23 12/25/23 [Wescaps Capsule] Clopidogrel [Plavix] 75 mg PO DAILY 12/25/23 01/03/24 Fluticasone/Vilanterol [Breo 1 each IH DAILY 12/25/23 01/03/24 Ellipta 200-25 Mcg INH] Folic Acid/Vit B Complex and C 0.8 mg PO DAILY 12/25/23 12/25/23 [Nancy-Garcia Tablet] Levetiracetam [Keppra Xr] 500 mg PO DAILY 12/25/23 01/03/24 Pantoprazole [Protonix] 40 mg PO DAILY 12/25/23 01/03/24 Sacubitril/Valsartan [Entresto 49 1 each PO DAILY 12/25/23 01/03/24 mg-51 mg Tablet] Sevelamer Carbonate [Renvela] 1,600 mg PO BID 12/25/23 01/03/24 amLODIPine [Norvasc] 10 mg PO DAILY 12/25/23 01/03/24 levETIRAcetam [Elepsia Xr] 1,000 mg PO DAILY 12/25/23 01/03/24 oxyCODONE [Roxicodone] 5 mg PO Q6H PRN 12/25/23 01/03/24 Albuterol Sulf [Ventolin Hfa 2 - 3 puffs INH QID #1 each 01/03/24 Inhaler] Amox/Clav 875/125 [Augmentin] 1 each PO Q12H #14 tablet 01/03/24 - Allergies Allergies/Adverse Reactions: Allergies Allergy/AdvReac Type Severity Reaction Status Date / Time droperidol Allergy Unknown Verified 05/26/24 13:43 hydromorphone Allergy Itching Verified 05/26/24 13:43 meperidine HCl * Allergy Itching Verified 05/26/24 13:43 [From Demerol] peanut Allergy Anaphylaxis Verified 05/26/24 13:43 - Social History Does the pt smoke?: No Smoking Status: Never smoker Does the pt drink ETOH?: No Does the pt have substance abuse?: Yes - Immunizations Immunizations are current?: Yes - POLST Patient has POLST: No PD ED PE NORMAL - Vitals Vital signs reviewed: Yes - General General: Alert and oriented X 3, No acute distress, Well developed/nourished - HEENT HEENT: Atraumatic, PERRL, EOMI, Pharynx benign. No: Moist mucous membranes - Neck Neck: Supple, no meningeal sign - Cardiac Cardiac: RRR - Respiratory Respiratory: Other (diminished breath sounds) - Abdomen Abdomen: Normal bowel sounds, Soft, Non tender, No organomegaly - Derm Derm: Other (right lateral eye facial fluctuant fluid collection in facial hair) - Extremities Extremities: No edema, No calf tenderness / cord - Neuro Neuro: Alert and oriented X 3, peach grower 2-12 intact, No motor deficit, No sensory deficit, Normal speech Eye Opening: Spontaneous Motor: Obeys Commands Verbal: Oriented GCS Score: 15 - Psych Psych: Normal mood, Normal affect PD ED PE EXPANDED - Neuro Neuro: Alert and Oriented X 3, Weakness, CNII-XII intact, PERRL, Normal gait, Normal finger nose, Normal speech. No: Nystagmus Results - Vitals Vitals: Vital Signs - 24 hr 05/26/24 05/26/24 05/26/24 13:37 14:10 16:59 Temperature 36.7 C Heart Rate 67 76 73 Respiratory 18 20 16 Rate Blood Pressure 147/71 H 150/70 H 147/71 H O2 Saturation 99 97 95 Oxygen O2 Source Room air - EKG (time done) 1418 EKG releavant findings:: EKG personally interpreted by author of this note. Relevant findings are: Rate: Rate (enter#) (75) Rhythm: NSR [place]: LAD Intervals: Normal KS QRS: Normal Ischemia: Other (LVH with secondary repolarization abnormality) - Labs Labs: Laboratory Tests 05/26/24 05/26/24 05/26/24 13:58 13:58 13:58 WBC 7.1 RBC 3.33 L Hgb 10.4 L Hct 30.6 L MCV 91.9 MCH 31.2 H MCHC 34.0 RDW 14.4 Plt Count 190 MPV 10.9 Neut # (Auto) 5.3 Lymph # (Auto) 0.8 L Mills # (Auto) 0.8 Eos # (Auto) 0.1 Baso # (Auto) 0.0 Absolute Nucleated RBC 0.00 Nucleated RBC % 0.0 Sodium 131 L Potassium 3.6 Chloride 90 L Carbon Dioxide 27 Anion Gap 14.0 H BUN 26 H Creatinine 4.1 H Estimated GFR (MDRD) 15 L Glucose 208 H Lactic Acid 0.9 Calcium 9.5 Magnesium 1.7 Total Bilirubin 0.8 AST 18 ALT 14 Alkaline Phosphatase 70 Troponin I High Sens 22.1 H* Total Protein 8.6 Albumin 4.8 Globulin 3.8 Albumin/Globulin Ratio 1.3 Lipase 21 Nasal Adenovirus (PCR) Nasal B. parapertussis DNA (PCR) Nasal Coronavir 229E PCR Nasal Coronavir HKU1 PCR Nasal Coronavir NL63 PCR Nasal Coronavir OC43 PCR Nasal Enterovir/Rhinovir PCR Nasal Influenza B PCR Nasal Influenza A PCR Nasal Parainfluen 1 PCR Nasal Parainfluen 2 PCR Nasal Parainfluen 3 PCR Nasal Parainfluen 4 PCR Nasal RSV (PCR) Nasal B.pertussis DNA PCR Nasal C.pneumoniae (PCR) Venu Human Metapneumo PCR Nasal M.pneumoniae (PCR) Nasal SARS-CoV-2 (PCR) 05/26/24 14:10 WBC RBC Hgb Hct MCV MCH MCHC RDW Plt Count MPV Neut # (Auto) Lymph # (Auto) Mills # (Auto) Eos # (Auto) Baso # (Auto) Absolute Nucleated RBC Nucleated RBC % Sodium Potassium Chloride Carbon Dioxide Anion Gap BUN Creatinine Estimated GFR (MDRD) Glucose Lactic Acid Calcium Magnesium Total Bilirubin AST ALT Alkaline Phosphatase Troponin I High Sens Total Protein Albumin Globulin Albumin/Globulin Ratio Lipase Nasal Adenovirus (PCR) NOT DETECTED Nasal B. parapertussis DNA (PCR) NOT DETECTED Nasal Coronavir 229E PCR NOT DETECTED Nasal Coronavir HKU1 PCR NOT DETECTED Nasal Coronavir NL63 PCR NOT DETECTED Nasal Coronavir OC43 PCR NOT DETECTED Nasal Enterovir/Rhinovir PCR NOT DETECTED Nasal Influenza B PCR NOT DETECTED Nasal Influenza A PCR NOT DETECTED Nasal Parainfluen 1 PCR NOT DETECTED Nasal Parainfluen 2 PCR NOT DETECTED Nasal Parainfluen 3 PCR NOT DETECTED Nasal Parainfluen 4 PCR NOT DETECTED Nasal RSV (PCR) NOT DETECTED Nasal B.pertussis DNA PCR NOT DETECTED Nasal C.pneumoniae (PCR) NOT DETECTED Venu Human Metapneumo PCR NOT DETECTED Nasal M.pneumoniae (PCR) NOT DETECTED Nasal SARS-CoV-2 (PCR) NOT DETECTED - Rads (name of study) CT orbits without Relevant Findings:: Final report received, EMP independent interpretation of test, Other (Right maxillary sinus is subtotally opacified acute on chronic sinusitis otherwise unremarkable noncontrast orbital CT.) Head CT without Relevant Findings:: Final report received, EMP independent interpretation of test, Other (No intracranial hemorrhages or abnormalities.) 1 view chest x-ray Relevant Findings:: Final report received, EMP independent interpretation of test, Other (Right basilar consolidation, mild right bilateral diffuse interstitial prominence suggestive of possible pulmonary edema, moderate right- sided pleural effusion) Procedures - Abscess I&D (location) right lateral upper cheek abscess Preparation: Lidocaine 2% Incision: Incised with scalpel, Purulent drainage, Loculations broken, Culture obtained Other: Pt tolerated well, Dressing applied PD Medical Decision Making - ED course ED course: 59-year-old male presents emergency department for multitude of complaints. In regards to patient's blurry vision he says that he does wear glasses but he does not have them on today he does not endorsing any pain with movement of his eyes and denies any flashers but I went ahead and ordered a CT orbits without con for further evaluation of possible retinal detachment and no acute abnormalities were visualized on the orbits CT without. In regards to patient's dizziness and head pain/headache head CT without was also complete for further evaluation and he was found to have opacification of the right maxillary sinus which is acute on chronic, age-related volume loss and small vessel ischemic changes no intracranial hemorrhages or abnormalities. In regards to the generalized malaise and shortness of breath chest x-ray was complete for further evaluation and patient does appear to have moderate right- sided pleural effusion with mild bilateral diffuse interstitial prominence suggestive of mild pulmonary edema as well as right basilar consolidation which may be due to atelectasis, aspiration, or pneumonia. Given how patient is feeling after that patient is experiencing pneumonia. Labs are complete for further evaluation he does not have any leukocytosis mild chronic anemia hemoglobin 10.4, GFR is 15 which is actually better in comparison to patient's GFR normal yes last visit GFR was found to be 13. Troponin was 22.1 this is most likely due to demand ischemia. Respiratory panel negative. Incision and drainage of the right lateral facial abscess was complete wound cultures were sent to lab for further evaluation I am not going to start him on any additional antibiotics for this as he should have complete alleviation of pain and symptoms soon this is most likely due to ingrown hair causing abscess. Patient has a PSI score of 79 and given the fact that he is dependent on dialysis and his next dialysis is due on Friday and he has been having these recurrent pleural effusions that have been requiring drainage although I do not think this will need to be drained right now I do believe that patient benefit from hospitalization. Because patient is dependent on dialysis for end-stage renal disease our hospitalist do not feel comfortable taking him here. I spoke with hospitalist at [facility] Dr. Jimenez who has agreed to admit the patient for further hospitalization and workup there is concern for possible underlying cancer that has been undiagnosed for these recurrent pleural effusions. Patient is transferred via ALS to [facility] for further evaluation workup. Departure - Departure Disposition: 02 Transfer Acute Care Hosp Forms: PCP List
[2024-05-26 14:06] LABS: BASOPHILS % (AUTO) 0.6 %; EOSINOPHILS # (AUTO) 0.1 10^3/uL (0.0-0.7); EOSINOPHILS % (AUTO) 1.8 %; HCT - HEMATOCRIT 30.6 % (42.0-52.0); HGB - HEMOGLOBIN 10.4 g/dL (14.0-18.0); LYMPHOCYTES # (AUTO) 0.8 10^3/uL (1.5-3.5); LYMPHOCYTES % (AUTO) 10.7 %; MEAN CORPUSCULAR HEMOGLOBIN 31.2 pg (27.0-31.0); MEAN CORPUSCULAR VOLUME 91.9 fL (80.0-94.0); MEAN PLATELET VOLUME 10.9 fL (7.4-11.4); MONOCYTES # (AUTO) 0.8 10^3/uL (0.0-1.0); MONOCYTES % (AUTO) 11.8 %; NEUTROPHILS # (AUTO) 5.3 10^3/uL (1.5-6.6); NEUTROPHILS % (AUTO) 74.5 %; PLT - PLATELET COUNT 190 10^3/uL (130-450); RED BLOOD COUNT 3.33 10^6/uL (4.70-6.10); RED CELL DISTRIBUTION WIDTH 14.4 % (12.0-15.0); WHITE BLOOD COUNT 7.1 x10^3/uL (4.8-10.8)
[2024-05-26 14:24] LABS: MAGNESIUM 1.7 mg/dL (1.7-2.3)
[2024-05-26 14:31] LABS: ALBUMIN 4.8 g/dL (3.2-5.5); ALBUMIN/GLOBULIN RATIO 1.3 (1.0-2.2); BILIRUBIN,TOTAL 0.8 mg/dL (0.2-1.0); CALCIUM 9.5 mg/dL (8.5-10.3); CREATININE 4.1 mg/dL (0.6-1.3); POTASSIUM 3.6 mmol/L (3.5-4.5); TOTAL PROTEIN 8.6 g/dL (6.4-8.9); TROPONIN I HIGH SENSITIVITY 22.1 ng/L (2.3-19.7)
[2024-05-26 15:07] LABS: B. PARAPERTUSSIS- RESP PCR PAN NOT DETECTED; B. PERTUSSIS- RESP PCR PANEL NOT DETECTED; C. PNEUMONIAE- RESP PCR PANEL NOT DETECTED; CORONAVIRUS 229E-RESP PCR NOT DETECTED; CORONAVIRUS HKU1-RESP PCR NOT DETECTED; CORONAVIRUS NL63-RESP PCR NOT DETECTED; CORONAVIRUS OC43-RESP PCR NOT DETECTED; HUMAN METAPNEUMOVIRUS NOT DETECTED; INFLUENZA A- RESP PCR PANEL NOT DETECTED; INFLUENZA B - RESP PCR PANEL NOT DETECTED; M. PNEUMONIAE- RESP PCR PANEL NOT DETECTED; PARAINFLUENZA VIRUS 1 NOT DETECTED; PARAINFLUENZA VIRUS 2 NOT DETECTED; PARAINFLUENZA VIRUS 3 NOT DETECTED; PARAINFLUENZA VIRUS 4 NOT DETECTED; RHINOVIRUS/ENTEROVIRUS NOT DETECTED; RSV- RESP PCR PANEL NOT DETECTED; SARS-CoV-2 -RESP PCR PANEL NOT DETECTED
--- NOTE | 2024-05-26 15:09 | XRAY Report ---
PROCEDURE: Chest 1V INDICATIONS: chest pain TECHNIQUE: One view of the chest was acquired. COMPARISON: Chest radiograph on January 03, 2024. FINDINGS: Surgical changes and devices: Left-sided tunneled dialysis catheter tip is in the right atrium. Lungs and pleura: Moderate right-sided pleural effusion with basilar consolidation. Mild bilateral d iffuse interstitial prominence. No pneumothorax bilaterally. Mediastinum: Heart and mediastinum are stable. Bones and chest wall: No suspicious bony lesions. Overlying soft tissues appear unremarkable. IMPRESSION: 1.Right basilar consolidation which may represent atelectasis, aspiration and/or pneumonia. 2.Mild bilateral diffuse interstitial prominence suggestive of mild pulmonary edema. 3.Moderate right-sided pleural effusion. Reviewed by: Eduardo Callahan MD on 05/26/2024 3:08 PM PDT Approved by: Eduardo Callahan MD on 05/26/2024 3:08 PM PDT Station ID: [id number]
--- NOTE | 2024-05-26 15:54 | CT Report ---
PROCEDURE: Head WO INDICATIONS: dizziness, new blurred vision TECHNIQUE: Noncontrast 4.5 mm thick angled axial sections acquired from the foramen magnum to the vertex. For r adiation dose reduction, the following was used: automated exposure control, adjustment of mA and/or kV according to patient size. COMPARISON: CT orbits from the same date. FINDINGS: Image quality: Excellent. CSF spaces: Basal cisterns are patent. No extra-axial fluid collections. Ventricles are normal in size and shape. Brain: No midline shift. No intracranial masses or hemorrhage. Sutton-white matter interface is norm al. Intracranial carotid calcifications. Age-related volume loss and mild age-appropriate small vesse l ischemic change. Skull and face: Right-sided suleiman holes. Calvarium and visualized facial bones are intact, without sanchez spicious lesions. Sinuses: As seen on the orbital CT, there is subtotal opacification of the right maxillary sinus and a appearance consistent with acute on chronic sinusitis. IMPRESSION: 1. Subtotal opacification of the right maxillary sinus, acute on chronic sinusitis. 2. Age-related volume loss and small vessel ischemic change. 3. No acute intracranial process noted. Reviewed by: Gian Lamb MD on 05/26/2024 3:53 PM PDT Approved by: Gian Lamb MD on 05/26/2024 3:53 PM PDT Station ID: [id number]
--- NOTE | 2024-05-26 15:56 | CT Report ---
PROCEDURE: Orbits WO INDICATIONS: new blurred vision, concern for retinol detachment TECHNIQUE: Noncontrast 2.0 mm axial images acquired through the orbits. For radiation dose reduction, the follo wing was used: automated exposure control, adjustment of mA and/or kV according to patient size. COMPARISON: CT head from the same date FINDINGS: Image quality: Excellent. Orbits: Globes are symmetrical. No metallic foreign bodies. The optic nerves are normal in size. No retrobulbar masses or fat abnormalities. The extra-ocular muscles are normal and symmetrical in a ppearance. Lacrimal glands are normal in size. Optic chiasm is normal. Intracranial: Visualized portions of the cerebral hemispheres, brainstem, and spinal cord are normal . Bones and sinuses: Visualized calvarium and facial bones appear intact. Subtotal opacification of th e right maxillary sinus with associated mucosal thickening. IMPRESSION: Right maxillary sinus is subtotally opacified. Acute on chronic sinusitis. Otherwise unremarkable noncontrast orbital CT. Reviewed by: Gian Lamb MD on 05/26/2024 3:54 PM PDT Approved by: Gian Lamb MD on 05/26/2024 3:54 PM PDT Station ID: [id number]
[2024-05-26] MEDS: LIDOCAINE-MPF 2% 5 ML VIAL SUBQ ONE (17:02)
[2024-05-26 17:07] VITALS: BP 147/71; O2SAT 95
[2024-05-26] MEDS: AZITHROMYCIN INJ 500 MG in SODIUM CHLORIDE 0.9% 250 ML IV STA (17:08)
[2024-05-26] MEDS: cefTRIAXone 1 GM in SODIUM CHLORIDE 0.9% MINIBAG 100 ML IV STA (17:08)
[2024-05-26] MEDS: BACITRACIN ZINC OINT 1 PACKET TOP STA (19:21)
[2024-05-26] MEDS: ACETAMINOPHEN 325 MG TABLET PO STA (21:40)
[2024-05-26] MEDS: ACETAMINOPHEN 500 MG TABLET PO STA (21:40)
== END 2024-05-26 21:25 | disposition short-term general hospital (02) ==
LOC: ED 13:31
DX: J18.9 Pneumonia, unspecified organism (principal); J90 Pleural effusion, not elsewhere classified; E11.22 Type 2 diabetes mellitus with diabetic chronic kidney disease; D63.1 Anemia in chronic kidney disease; N18.9 Chronic kidney disease, unspecified; L02.01 Cutaneous abscess of face; I25.2 Old myocardial infarction; Z99.2 Dependence on renal dialysis; Z79.02 Long term (current) use of antithrombotics/antiplatelets; Z79.899 Other long term (current) drug therapy
CPT/HCPCS: 10060; 36415; 70450; 70480; 71045; 80053; 83605; 83690; 83735; 84484; 85025; 87040; 87070; 87075; 87186; 87633; 93005; 96365; 96368; 99285; A9270

== ENCOUNTER 2024-07-22 13:54 | Outpatient (CLI) | payer MEDICAID ==
--- NOTE | 2024-07-22 20:12 | XRAY Report ---
PROCEDURE: Chest 2V INDICATIONS: SHORTNESS OF BREATH TECHNIQUE: 2 views of the chest were acquired. COMPARISON: Chest radiograph 05/26/2024. FINDINGS: Surgical changes and devices: Left internal jugular tunneled hemodialysis catheter is present.. Lungs and pleura: Small right pleural effusion with right basilar atelectasis. The pleural effusion has decreased in size compared to the exam from 05/26/2024. Trace left effusion. No pneumothorax. Mediastinum: Cardiac silhouette is enlarged. Bones and chest wall: No suspicious bony lesions. Overlying soft tissues appear unremarkable. IMPRESSION: 1.Small right pleural effusion with atelectasis or consolidation at the right lung base, decreased wh en compared to the exam from 05/26/2024. 2.Trace left pleural effusion. 3.Cardiomegaly. Reviewed by: Angel Mann MD on 07/22/2024 8:11 PM PDT Approved by: Angel Mann MD on 07/22/2024 8:11 PM PDT Station ID: [id number]
== END 2024-07-22 13:55 | disposition home or self-care (01) ==
LOC: DI 13:54
PROVIDERS: ATTEND Internal Medicine Nephrology
DX: J90 Pleural effusion, not elsewhere classified (principal); J98.11 Atelectasis; I51.7 Cardiomegaly